=== PATIENT | female | born 1940 | race Caucasian/White ===

== ENCOUNTER 2017-01-23 05:30 | Inpatient (IN) ==
--- NOTE | 2017-01-21 16:45 | XRay Report ---
CLINICAL INFORMATION: Preop COMPARISON: 07/09/2016 FINDINGS:The heart size, mediastinum and pulmonary vessels are unremarkable. The lungs are clear. There are no effusions. The bones and soft tissues are within normal limits. IMPRESSION: Normal chest. Interpreted and Authenticated by: Vish Baker 01/21/17
[2017-01-21 16:50] LABS: Basophils # (Auto) 0.1 K/mcL (0.0-0.3); Basophils % (Auto) 0.6 % (0.0-2.0); Eosinophils # (Auto) 0.2 K/mcL (0.0-0.7); Eosinophils % (Auto) 1.9 % (0.0-7.0); Granulocytes % (Auto) 66.5 % (38.0-78.0); Lymphocytes # (Auto) 2.1 K/mcL (1.5-4.8); Lymphocytes % (Auto) 24.4 % (15.5-49.0); Mean Cell Volume 94.8 fL (80.0-100.0); Mean Corpuscular HGB Conc 33.3 g/dL (31.0-36.0); Mean Corpuscular Hemoglobin 31.6 pg (26.0-34.0); Monocytes # (Auto) 0.6 K/mcL (0.1-0.9); Monocytes % (Auto) 6.6 % (1.0-12.0); Platelet Count 386 K/mcL (140-440); RBC 4.68 M/mcL (4.00-5.20); Red Cell Distribution Width 14.1 % (11.5-14.5)
[2017-01-21 16:54] LABS: ALT/SGPT 36 U/l (0-40); Albumin 4.3 gm/dL (3.2-5.2); Albumin/Globulin Ratio 1.5 (1.0-2.3); Alkaline Phosphatase 140 U/L (39-117); Blood Urea Nitrogen 13 mg/dl (8-23)
[2017-01-23] MEDS ORDERED: metroNIDAZOLE 500 MG/100 ML BAG IV SCH (07:00)
[2017-01-23] MEDS ORDERED: LEVOFLOXACIN 750 MG/150 ML BAG IV SCH (07:00)
[2017-01-23] MEDS ORDERED: BACITRACIN 50,000 UNIT VIAL IR ONE (08:37)
[2017-01-23] MEDS ORDERED: BUPIVACAINE W/EPI 0.5% 50 ML VIAL IJ ONE (08:37)
[2017-01-23] MEDS ORDERED: fentaNYL 250 MCG/5 ML VIAL IV ONE (08:50)
[2017-01-23] MEDS ORDERED: PROPOFOL 200 MG/20 ML VIAL IV ONE (08:50)
[2017-01-23] MEDS ORDERED: ONDANSETRON 4 MG/2 ML VIAL IV ONE (08:50)
[2017-01-23] MEDS ORDERED: LIDOCAINE HCL/PF 100 MG/5 ML SYRINGE IV ONE (08:50)
[2017-01-23] MEDS ORDERED: DEXAMETHASONE 10 MG/ML VIAL IV ONE (08:50)
[2017-01-23] MEDS ORDERED: ROCURONIUM 10 MG/ML ML IV ONE (08:50)
[2017-01-23] MEDS ORDERED: MIDAZOLAM 5 MG/5 ML VIAL IV ONE (08:50)
[2017-01-23] MEDS ORDERED: NEOSTIGMINE 1 MG/ML VIAL IV ONE (08:50)
[2017-01-23] MEDS ORDERED: GLYCOPYRROLATE 0.2 MG/ML VIAL IV ONE (08:50)
[2017-01-23] MEDS ORDERED: VANCOMYCIN 1,000 MG in 0.9 % SODIUM CHLORIDE 250 ML IV ONE (09:30)
[2017-01-23] MEDS ORDERED: fentaNYL 100 MCG/2 ML VIAL IV PRN (10:19)
[2017-01-23] MEDS ORDERED: IPRATROPIUM/ALBUTEROL 3 ML AMPUL.NEB NEB PRN (10:19)
[2017-01-23] MEDS ORDERED: BENZOCAINE/MENTHOL 1 LOZENGE PO PRN (10:19)
[2017-01-23] MEDS ORDERED: NALOXONE HCL 0.4 MG/ML VIAL IV PRN (10:19)
[2017-01-23] MEDS ORDERED: MEPERIDINE 25 MG/ML SYRINGE IV PRN (10:19)
[2017-01-23] MEDS ORDERED: ONDANSETRON 4 MG/2 ML VIAL IV PRN ×2 (10:19→11:35)
[2017-01-23] MEDS ORDERED: diphenhydrAMINE 50 MG/ML VIAL IV PRN (10:19)
[2017-01-23] MEDS ORDERED: ePHEDrine 50 MG/ML AMPUL IV PRN (10:19)
[2017-01-23] MEDS ORDERED: FLUMAZENIL 0.1 MG/ML ML IV PRN (10:19)
[2017-01-23] MEDS ORDERED: METHOCARBAMOL 1,000 MG/10 ML VIAL IV PRN (10:19)
[2017-01-23] MEDS ORDERED: METOPROLOL TARTRATE 5 MG/5 ML VIAL IV PRN (10:19)
[2017-01-23] MEDS ORDERED: ATROPINE SULFATE 0.4 MG/ML VIAL IV PRN (10:19)
[2017-01-23] MEDS ORDERED: PROMETHAZINE 25 MG/ML VIAL IV PRN (10:19)
--- NOTE | 2017-01-23 10:28 | Brief Operative Note ---
Date of procedure: 01/23/17 Pre-op diagnosis: incisional hernia Post-op diagnosis: other (incisional hernia) Procedure: incisional hernia repair with mesh graft Grafts/Implants: Yes (vicryl mesh) Anesthesia: GETA Findings: very large hernia of entire incision Complications: none Surgeon: Jorge Justin Estimated blood loss (cc): 20 Specimens Removed/Pathology: none sent Condition: stable Disposition: PACU
[2017-01-23] MEDS ORDERED: LACTATED RINGERS 1,000 ML IV SCH (10:30)
[2017-01-23] MEDS ORDERED: ACETAMINOPHEN 1,000 MG/100 ML BOTTLE IV PRN ×2 (10:40→16:23)
[2017-01-23] MEDS ORDERED: HYDROmorphone 2 MG/ML SYRINGE IV PRN (11:35)
--- NOTE | 2017-01-23 11:54 | Operative Note ---
DATE OF OPERATION: 01/23/2017 PREOPERATIVE DIAGNOSIS: Incisional hernia. POSTOPERATIVE DIAGNOSIS: Incisional hernia. PROCEDURE: Incisional hernia repair with mesh graft. SURGEON: Jorge Justin MD FINDINGS: Very large hernia encompassing the entire upper aspect one half of the mid-abdominal wall. DESCRIPTION OF PROCEDURE: Under general anesthesia, the patient's abdomen was prepped and draped in a sterile field. A timeout procedure was carried out as per protocol. A midline incision was made. Incision was extended down to the subcutaneous fat where poorly defined hernia sac was encountered. The barrera of the hernia involved the entire previous incision. No retained suture was encountered. The margins were dissected back to the junction of the internal obliques. The attenuated fascial margins were excised. It was elected to place Vicryl mesh rather than SurgiMesh. The bowel was inspected and there was no evidence of injury. Irrigation was carried out. Fish retractor was placed. Vicryl mesh was stapled in using the secure strap auto stapler. The Fish was removed before placing the final sutures. The fascia was closed in the midline over the mesh using interrupted #1 Prolene. MAURA drains were placed in the subcutaneous tissue. The subcutaneous tissue was closed in the midline using 2-0 Monocryl. The skin was closed with frank. Drains were secured with 2-0 Nylon. Tegaderm dressings and an abdominal binder was placed. Patient tolerated procedure well. She was awakened and transferred to the Post-Anesthetic Care Unit in stable condition. LCS:brooks Job ID: [id number] Doc ID: [id number] Jorge Justin M.D.
[2017-01-23] MEDS ORDERED: METOCLOPRAMIDE 10 MG/2 ML VIAL IV SCH (12:00)
[2017-01-23] MEDS: ACETAMINOPHEN 1,000 MG/100 ML BOTTLE IV PRN ×2 (12:15→19:46)
[2017-01-23] MEDS: 0.9 % SODIUM CHLORIDE 1,000 ML IV SCH ×2 (12:15→22:56)
[2017-01-23] MEDS: METOCLOPRAMIDE 10 MG/2 ML VIAL IV SCH ×2 (13:14→17:49)
[2017-01-23] MEDS: 0.9 % SODIUM CHLORIDE 10 ML SYRINGE IV SCH ×2 (15:06→22:31)
[2017-01-23] MEDS ORDERED: MEPERIDINE 50 MG/ML SYRINGE IV PRN (16:23)
[2017-01-23] MEDS: ALPRAZolam 0.5 MG TABLET PO PRN (17:39)
[2017-01-24] MEDS: ALPRAZolam 0.5 MG TABLET PO PRN ×2 (00:06→17:00)
[2017-01-24] MEDS: METOCLOPRAMIDE 10 MG/2 ML VIAL IV SCH ×4 (00:08→17:26)
[2017-01-24] MEDS: ACETAMINOPHEN 1,000 MG/100 ML BOTTLE IV PRN ×4 (01:33→20:25)
[2017-01-24 05:55] LABS: Mean Cell Volume 96.2 fL (80.0-100.0); Mean Corpuscular Hemoglobin 31.7 pg (26.0-34.0); Platelet Count 328 K/mcL (140-440); RBC 4.16 M/mcL (4.00-5.20); Red Cell Distribution Width 14.1 % (11.5-14.5)
[2017-01-24] MEDS: 0.9 % SODIUM CHLORIDE 10 ML SYRINGE IV SCH ×4 (06:02→22:08)
[2017-01-24 06:07] LABS: ALT/SGPT 26 U/l (0-40); Albumin 3.5 gm/dL (3.2-5.2); Albumin/Globulin Ratio 1.6 (1.0-2.3); Alkaline Phosphatase 115 U/L (39-117); Bilirubin,Direct < 0.2 mg/dL (0.0-0.3); Blood Urea Nitrogen 12 mg/dl (8-23); Gamma Glutamyl Transpeptidase 24 U/L (5-36); Magnesium 1.8 mg/dL (1.6-2.5); Uric Acid 5.2 mg/dL (2.5-8.0)
[2017-01-24 07:45] LABS: Lymphocytes % 12 % (15-49); Monocytes % (Manual) 10 % (1-12); Platelet Estimate NORMAL (NORMAL); RBC Morphology NORMAL (NORMAL); Segmented Neutrophils % 78 % (38-78)
[2017-01-24] MEDS: PANTOPRAZOLE 40 MG VIAL IV SCH (07:58)
[2017-01-24] MEDS: 0.9 % SODIUM CHLORIDE 1,000 ML IV SCH ×4 (07:58→22:08)
[2017-01-24] MEDS: CITALOPRAM 20 MG TABLET PO SCH ×2 (08:00→17:26)
[2017-01-24] MEDS: LEVOFLOXACIN 750 MG/150 ML BAG IV SCH (09:30)
--- NOTE | 2017-01-24 17:15 | General Surgery Progress Note ---
Subjective Patient reports: feels better, pain is less, no flatus, no bowel movement, afebrile Narrative: Note initiated : 01/24/17 at 5:13 pm Service Date, if different from initiated Date: [] Patient: Tameka Mccain 76 y/o F admitted on 01/23/17 for Open Hernia Repair Incisional. Chief Complaint: [Patient is doing relatively well. Her major discomfort is with her nasogastric tube. She has not had flatus or bowel movement. Her drainage per Esau-Hollingsworth drains is small amount and serosanguineous. She denies having nausea. Her pain is well controlled.] Objective Temp Pulse Resp BP Pulse Ox 98.6 F 78 18 140/71 92 01/24/17 16:00 01/24/17 03:42 01/24/17 16:00 01/24/17 16:00 01/24/17 16:00 - Additional Data Intake & Output - Last 24 hours: Intake & Output 01/22/17 01/23/17 01/24/17 01/25/17 05:59 05:59 05:59 05:59 Intake Total 4100 / 4100 1340 / 1340 Output Total 1348 / 1348 1503 / 1503 Balance 2752 / 2752 -163 / -163 Weight 138 lb 139 lb 149 lb 149 lb - General physical appearance moderate distress, moderate pain - Eyes PERRL - ENT no congestion - Neck no venous distension - Respiratory normal respiratory effort, clear to auscultation - Cardiovascular Cardiovascular exam: Present: normal rate and rhythm, RRR, +S1, +S2. Absent: JVD - Abdomen tender, bowel sounds, distended (Abdomen is mildly distended but she has active bowel sounds. Her incision looks okay.) - Integumentary no rash, no growths, no abnormal pigmentation - Psychiatric oriented to time, oriented to person, oriented to place, speech is normal, memory intact - Labs 01/24/17 04:50 01/24/17 04:50 Diabetes panel 01/24/17 Range/Units 04:50 Sodium 138 (133-145) mmol/L Potassium 3.6 (3.3-5.1) mmol/L Chloride 103 (96-108) mmol/L Carbon Dioxide 22 (22-30) mmol/L BUN 12 (8-23) mg/dl Creatinine 0.6 (0.6-1.1) mg/dl Glucose 95 (70-105) mg/dL Calcium 8.8 (8.6-10.4) mg/dl AST 26 (0-37) U/l ALT 26 (0-40) U/l Alkaline Phosphatase 115 (39-117) U/L Total Protein 5.7 L (5.9-8.4) gm/dL Albumin 3.5 (3.2-5.2) gm/dL Triglycerides 58 (<150) mg/dl Calcium panel 01/24/17 Range/Units 04:50 Calcium 8.8 (8.6-10.4) mg/dl Phosphorus 3.3 (2.7-4.5) mg/dL Albumin 3.5 (3.2-5.2) gm/dL Pituitary panel 01/24/17 Range/Units 04:50 Sodium 138 (133-145) mmol/L Potassium 3.6 (3.3-5.1) mmol/L Chloride 103 (96-108) mmol/L Carbon Dioxide 22 (22-30) mmol/L BUN 12 (8-23) mg/dl Creatinine 0.6 (0.6-1.1) mg/dl Glucose 95 (70-105) mg/dL Calcium 8.8 (8.6-10.4) mg/dl Adrenal panel 01/24/17 Range/Units 04:50 Sodium 138 (133-145) mmol/L Potassium 3.6 (3.3-5.1) mmol/L Chloride 103 (96-108) mmol/L Carbon Dioxide 22 (22-30) mmol/L BUN 12 (8-23) mg/dl Creatinine 0.6 (0.6-1.1) mg/dl Glucose 95 (70-105) mg/dL Calcium 8.8 (8.6-10.4) mg/dl Total Bilirubin 0.4 (0.0-1.0) mg/dL AST 26 (0-37) U/l ALT 26 (0-40) U/l Alkaline Phosphatase 115 (39-117) U/L Total Protein 5.7 L (5.9-8.4) gm/dL Albumin 3.5 (3.2-5.2) gm/dL Assessment and Plan (1) Incisional hernia of anterior abdominal wall without obstruction or gangrene Status: Acute Assessment and plan: We will continue present therapy Current Visit: No (2) Anxiety Status: Chronic Assessment and plan: Xanax will be given orally and the nasogastric tube will be clamped for 2 hours after each dose Current Visit: No - Time Spent With Patient Total time spent is greater than 50% in coordination of care (as documented) at patient's floor/unit and/or counseling patient:
[2017-01-25] MEDS: METOCLOPRAMIDE 10 MG/2 ML VIAL IV SCH ×4 (00:22→19:04)
[2017-01-25] MEDS: ACETAMINOPHEN 1,000 MG/100 ML BOTTLE IV PRN ×3 (04:05→20:16)
[2017-01-25] MEDS: 0.9 % SODIUM CHLORIDE 10 ML SYRINGE IV SCH ×3 (05:49→22:05)
[2017-01-25 06:30] LABS: Mean Cell Volume 94.2 fL (80.0-100.0); Mean Corpuscular HGB Conc 33.6 g/dL (31.0-36.0); Mean Corpuscular Hemoglobin 31.7 pg (26.0-34.0); Platelet Count 374 K/mcL (140-440); Red Cell Distribution Width 14.1 % (11.5-14.5)
[2017-01-25] MEDS: 0.9 % SODIUM CHLORIDE 1,000 ML IV SCH ×3 (06:40→13:13)
[2017-01-25 07:10] LABS: ALT/SGPT 22 U/l (0-40); Albumin 3.9 gm/dL (3.2-5.2); Albumin/Globulin Ratio 1.7 (1.0-2.3); Alkaline Phosphatase 122 U/L (39-117); Bilirubin,Direct < 0.2 mg/dL (0.0-0.3); Blood Urea Nitrogen 7 mg/dl (8-23); Gamma Glutamyl Transpeptidase 24 U/L (5-36); Magnesium 1.9 mg/dL (1.6-2.5); Uric Acid 5.7 mg/dL (2.5-8.0)
[2017-01-25 07:34] LABS: Eosinophils % (Manual) 2 % (0-7); Lymphocytes % 5 % (15-49); Monocytes % (Manual) 3 % (1-12); Platelet Estimate NORMAL (NORMAL); RBC Morphology NORMAL (NORMAL); Segmented Neutrophils % 90 % (38-78)
[2017-01-25] MEDS: PANTOPRAZOLE 40 MG VIAL IV SCH (08:12)
[2017-01-25] MEDS: CITALOPRAM 20 MG TABLET PO SCH (08:12)
[2017-01-25] MEDS: ALPRAZolam 0.5 MG TABLET PO PRN ×2 (08:12→19:03)
[2017-01-25] MEDS: LEVOFLOXACIN 750 MG/150 ML BAG IV SCH (10:13)
[2017-01-25] MEDS ORDERED: POTASSIUM PHOSPHATE 40 MEQ in DEXTROSE 5% IN WATER 500 ML IV ONE (10:50)
--- NOTE | 2017-01-25 11:57 | General Surgery Progress Note ---
Subjective Patient reports: feels better, pain is less, no flatus, no bowel movement, afebrile Narrative: Note initiated : 01/25/17 at 11:55 am Service Date, if different from initiated Date: [] Patient: Tameka Mccain 76 y/o F admitted on 01/23/17 for Open Hernia Repair Incisional. Chief Complaint: [Mrs. Mccain is stable and improved. She denies any chest pain or shortness of breath. She has not had nausea or vomiting. Her nasogastric output has decreased but she has not had flatus. Her abdominal pain is controlled with IV Tylenol without difficulty. Objective Temp Pulse Resp BP Pulse Ox 98.6 F 89 20 176/95 97 01/25/17 07:40 01/25/17 04:00 01/25/17 07:40 01/25/17 07:40 01/25/17 07:40 - Additional Data Intake & Output - Last 24 hours: Intake & Output 01/23/17 01/24/17 01/25/17 01/26/17 05:59 05:59 05:59 05:59 Intake Total 4100 / 4100 2720 / 2720 1000 / 1000 Output Total 1348 / 1348 3788 / 3788 400 / 400 Balance 2752 / 2752 -1068 / -1068 600 / 600 Weight 139 lb 149 lb 146 lb 8 oz - General physical appearance well developed, well nourished, no distress, severe distress - Eyes PERRL, normal ocular movement - ENT normal pinna, normal nares, normal mucosa, no hearing loss, no congestion - Neck no masses, no bruits, trachea midline, no lymphadectomy, no venous distension - Respiratory normal expansion, normal respiratory effort, clear to percussion, clear to auscultation - Cardiovascular Cardiovascular exam: Present: normal rate and rhythm, RRR, +S1, +S2. Absent: JVD - Abdomen tender, bowel sounds, distended (Abdomen is distended but soft. She has good active bowel sounds. MAURA drainage is minimal and is more serous) - Integumentary no rash, no growths, no abnormal pigmentation - Neurologic normal coordination, normal sensation - Musculoskeletal normal gait, normal posture - Psychiatric oriented to time, oriented to person, oriented to place, speech is normal, memory intact - Labs 01/25/17 05:05 01/25/17 05:05 Diabetes panel 01/25/17 Range/Units 05:05 Sodium 138 (133-145) mmol/L Potassium 3.3 (3.3-5.1) mmol/L Chloride 100 (96-108) mmol/L Carbon Dioxide 19 L (22-30) mmol/L BUN 7 L (8-23) mg/dl Creatinine 0.6 (0.6-1.1) mg/dl Glucose 83 (70-105) mg/dL Calcium 8.9 (8.6-10.4) mg/dl AST 23 (0-37) U/l ALT 22 (0-40) U/l Alkaline Phosphatase 122 H (39-117) U/L Total Protein 6.2 (5.9-8.4) gm/dL Albumin 3.9 (3.2-5.2) gm/dL Triglycerides 89 (<150) mg/dl Calcium panel 01/25/17 Range/Units 05:05 Calcium 8.9 (8.6-10.4) mg/dl Phosphorus 2.4 L (2.7-4.5) mg/dL Albumin 3.9 (3.2-5.2) gm/dL Pituitary panel 01/25/17 Range/Units 05:05 Sodium 138 (133-145) mmol/L Potassium 3.3 (3.3-5.1) mmol/L Chloride 100 (96-108) mmol/L Carbon Dioxide 19 L (22-30) mmol/L BUN 7 L (8-23) mg/dl Creatinine 0.6 (0.6-1.1) mg/dl Glucose 83 (70-105) mg/dL Calcium 8.9 (8.6-10.4) mg/dl Adrenal panel 01/25/17 Range/Units 05:05 Sodium 138 (133-145) mmol/L Potassium 3.3 (3.3-5.1) mmol/L Chloride 100 (96-108) mmol/L Carbon Dioxide 19 L (22-30) mmol/L BUN 7 L (8-23) mg/dl Creatinine 0.6 (0.6-1.1) mg/dl Glucose 83 (70-105) mg/dL Calcium 8.9 (8.6-10.4) mg/dl Total Bilirubin 0.5 (0.0-1.0) mg/dL AST 23 (0-37) U/l ALT 22 (0-40) U/l Alkaline Phosphatase 122 H (39-117) U/L Total Protein 6.2 (5.9-8.4) gm/dL Albumin 3.9 (3.2-5.2) gm/dL Assessment and Plan (1) Incisional hernia of anterior abdominal wall without obstruction or gangrene Status: Acute Assessment and plan: We will continue present therapy Discontinue nasogastric tube Current Visit: No (2) Anxiety Status: Chronic Assessment and plan: Xanax will be given orally and the nasogastric tube will be clamped for 2 hours after each dose Current Visit: No - Time Spent With Patient Total time spent is greater than 50% in coordination of care (as documented) at patient's floor/unit and/or counseling patient:
[2017-01-26] MEDS: METOCLOPRAMIDE 10 MG/2 ML VIAL IV SCH ×4 (00:18→19:40)
[2017-01-26] MEDS: ALPRAZolam 0.5 MG TABLET PO PRN ×2 (00:37→22:22)
[2017-01-26] MEDS: 0.9 % SODIUM CHLORIDE 1,000 ML IV SCH ×4 (01:50→18:23)
[2017-01-26] MEDS: 0.9 % SODIUM CHLORIDE 10 ML SYRINGE IV SCH ×3 (05:47→23:09)
[2017-01-26 06:54] LABS: Mean Cell Volume 94.3 fL (80.0-100.0); Mean Corpuscular HGB Conc 33.7 g/dL (31.0-36.0); Mean Corpuscular Hemoglobin 31.8 pg (26.0-34.0); Platelet Count 346 K/mcL (140-440); RBC 4.29 M/mcL (4.00-5.20); Red Cell Distribution Width 13.9 % (11.5-14.5)
[2017-01-26 07:01] LABS: ALT/SGPT 20 U/l (0-40); Albumin 3.3 gm/dL (3.2-5.2); Albumin/Globulin Ratio 1.3 (1.0-2.3); Alkaline Phosphatase 115 U/L (39-117); Bilirubin,Direct < 0.2 mg/dL (0.0-0.3); Blood Urea Nitrogen 6 mg/dl (8-23); Gamma Glutamyl Transpeptidase 23 U/L (5-36); Magnesium 1.8 mg/dL (1.6-2.5); Uric Acid 6.7 mg/dL (2.5-8.0)
[2017-01-26 07:38] LABS: Basophils % (Manual) 1 % (0-2); Eosinophils % (Manual) 5 % (0-7); Lymphocytes % 19 % (15-49); Monocytes % (Manual) 5 % (1-12); Platelet Estimate NORMAL (NORMAL); RBC Morphology NORMAL (NORMAL); Segmented Neutrophils % 70 % (38-78)
[2017-01-26] MEDS: PANTOPRAZOLE 40 MG VIAL IV SCH (08:00)
[2017-01-26] MEDS: CITALOPRAM 20 MG TABLET PO SCH (09:41)
[2017-01-26] MEDS: ACETAMINOPHEN 1,000 MG/100 ML BOTTLE IV PRN (09:50)
[2017-01-26] MEDS: LEVOFLOXACIN 750 MG/150 ML BAG IV SCH ×2 (11:04→20:21)
--- NOTE | 2017-01-26 11:34 | General Surgery Progress Note ---
Subjective Patient reports: feels better, pain is less, no flatus, no bowel movement, afebrile Narrative: Note initiated : 01/26/17 at 11:32 am Service Date, if different from initiated Date: [] Patient: Tameka Mccain 76 y/o F admitted on 01/23/17 for Open Hernia Repair Incisional. Chief Complaint: [Mrs. Mccain is doing very well. She has tolerated having her nasogastric tube out. She denies nausea. She does not have crampy abdominal pain. She has not had flatus or bowel movement yet but she does not have any abdominal distention. MAURA drainage is gradually decreasing. Urine output is excellent.] Objective Temp Pulse Resp BP Pulse Ox 97.9 F 90 20 162/83 95 01/26/17 11:25 01/26/17 04:00 01/26/17 11:25 01/26/17 11:25 01/26/17 11:25 - Additional Data Intake & Output - Last 24 hours: Intake & Output 01/24/17 01/25/17 01/26/17 01/27/17 05:59 05:59 05:59 05:59 Intake Total 4100 / 4100 2820 / 2820 2440 / 2440 200 / 200 Output Total 1348 / 1348 3788 / 3788 4080 / 4080 250 / 250 Balance 2752 / 2752 -968 / -968 -1640 / -1640 -50 / -50 Weight 149 lb 146 lb 8 oz 145 lb - General physical appearance moderate distress, moderate pain - Eyes PERRL - ENT normal pinna, normal nares, normal mucosa - Neck no masses, no lymphadectomy - Respiratory normal expansion, clear to auscultation - Cardiovascular Cardiovascular exam: Present: normal rate and rhythm, RRR, +S1, +S2 - Abdomen soft, non tender, bowel sounds (Good active bowel sounds without distention incision looks good), surgical scars (none), masses (none) Hernia: none - Integumentary no rash - Neurologic normal coordination, normal sensation - Musculoskeletal normal gait, normal posture - Psychiatric oriented to time, oriented to person, oriented to place, speech is normal, memory intact - Labs 01/26/17 05:30 01/26/17 05:30 Diabetes panel 01/26/17 Range/Units 05:30 Sodium 139 (133-145) mmol/L Potassium 3.2 L (3.3-5.1) mmol/L Chloride 101 (96-108) mmol/L Carbon Dioxide 19 L (22-30) mmol/L BUN 6 L (8-23) mg/dl Creatinine 0.6 (0.6-1.1) mg/dl Glucose 80 (70-105) mg/dL Calcium 9.0 (8.6-10.4) mg/dl AST 22 (0-37) U/l ALT 20 (0-40) U/l Alkaline Phosphatase 115 (39-117) U/L Total Protein 5.9 (5.9-8.4) gm/dL Albumin 3.3 (3.2-5.2) gm/dL Triglycerides 83 (<150) mg/dl Calcium panel 01/26/17 Range/Units 05:30 Calcium 9.0 (8.6-10.4) mg/dl Phosphorus 2.7 (2.7-4.5) mg/dL Albumin 3.3 (3.2-5.2) gm/dL Pituitary panel 01/26/17 Range/Units 05:30 Sodium 139 (133-145) mmol/L Potassium 3.2 L (3.3-5.1) mmol/L Chloride 101 (96-108) mmol/L Carbon Dioxide 19 L (22-30) mmol/L BUN 6 L (8-23) mg/dl Creatinine 0.6 (0.6-1.1) mg/dl Glucose 80 (70-105) mg/dL Calcium 9.0 (8.6-10.4) mg/dl Adrenal panel 01/26/17 Range/Units 05:30 Sodium 139 (133-145) mmol/L Potassium 3.2 L (3.3-5.1) mmol/L Chloride 101 (96-108) mmol/L Carbon Dioxide 19 L (22-30) mmol/L BUN 6 L (8-23) mg/dl Creatinine 0.6 (0.6-1.1) mg/dl Glucose 80 (70-105) mg/dL Calcium 9.0 (8.6-10.4) mg/dl Total Bilirubin 0.5 (0.0-1.0) mg/dL AST 22 (0-37) U/l ALT 20 (0-40) U/l Alkaline Phosphatase 115 (39-117) U/L Total Protein 5.9 (5.9-8.4) gm/dL Albumin 3.3 (3.2-5.2) gm/dL Assessment and Plan (1) Incisional hernia of anterior abdominal wall without obstruction or gangrene Status: Acute Assessment and plan: We will continue present therapy Start clear liquid diet Decrease IV to 75 cc/h Current Visit: No (2) Anxiety Status: Chronic Assessment and plan: Well-controlled on present therapy Current Visit: No - Time Spent With Patient Total time spent is greater than 50% in coordination of care (as documented) at patient's floor/unit and/or counseling patient:
[2017-01-26] MEDS: hydrALAZINE 20 MG/ML VIAL IV SCH (20:45)
[2017-01-26] MEDS: amLODIPine 10 MG TABLET PO SCH (20:45)
[2017-01-27] MEDS: hydrALAZINE 20 MG/ML VIAL IV SCH ×2 (00:53→06:00)
[2017-01-27] MEDS: 0.9 % SODIUM CHLORIDE 1,000 ML IV SCH ×2 (00:54→07:21)
[2017-01-27] MEDS: METOCLOPRAMIDE 10 MG/2 ML VIAL IV SCH ×2 (00:54→06:00)
[2017-01-27] MEDS: 0.9 % SODIUM CHLORIDE 10 ML SYRINGE IV SCH (06:01)
[2017-01-27 06:42] LABS: Mean Cell Volume 92.7 fL (80.0-100.0); Mean Corpuscular HGB Conc 33.9 g/dL (31.0-36.0); Mean Corpuscular Hemoglobin 31.4 pg (26.0-34.0); Platelet Count 375 K/mcL (140-440); RBC 4.53 M/mcL (4.00-5.20)
[2017-01-27 06:58] LABS: ALT/SGPT 25 U/l (0-40); Albumin 3.5 gm/dL (3.2-5.2); Albumin/Globulin Ratio 1.3 (1.0-2.3); Alkaline Phosphatase 123 U/L (39-117); Bilirubin,Direct < 0.2 mg/dL (0.0-0.3); Blood Urea Nitrogen 6 mg/dl (8-23); Gamma Glutamyl Transpeptidase 26 U/L (5-36); Magnesium 1.7 mg/dL (1.6-2.5); Uric Acid 6.8 mg/dL (2.5-8.0)
[2017-01-27] MEDS: PANTOPRAZOLE 40 MG VIAL IV SCH (07:20)
[2017-01-27 07:44] LABS: Eosinophils % (Manual) 5 % (0-7); Lymphocytes % 16 % (15-49); Monocytes % (Manual) 7 % (1-12); Platelet Estimate NORMAL (NORMAL); RBC Morphology NORMAL (NORMAL); Segmented Neutrophils % 72 % (38-78)
[2017-01-27] MEDS: LEVOFLOXACIN 750 MG/150 ML BAG IV SCH (08:42)
[2017-01-27] MEDS: CITALOPRAM 20 MG TABLET PO SCH (08:43)
[2017-01-27] MEDS: amLODIPine 10 MG TABLET PO SCH (08:43)
[2017-01-27] MEDS ORDERED: HYDROmorphone 2 MG TABLET PO PRN (11:23)
--- NOTE | 2017-01-27 11:27 | General Surgery Progress Note ---
Subjective Patient reports: feels better, pain is less, tolerating liquids well, flatus, no bowel movement, afebrile Narrative: Note initiated : 01/27/17 at 11:25 am Service Date, if different from initiated Date: [] Patient: Tameka Mccain 76 y/o F admitted on 01/23/17 for Open Hernia Repair Incisional. Chief Complaint: [Patient is doing well. She has had a small amount of flatus but no bowel movement. She is also having difficulty with IV access. She will receive milk of magnesia 3 doses and will be switched to oral medications. Her diet will be advanced after she has a bowel movement.] Objective Temp Pulse Resp BP Pulse Ox 98.2 F 89 18 144/78 95 01/27/17 11:16 01/27/17 04:00 01/27/17 11:16 01/27/17 11:16 01/27/17 11:16 - Additional Data Intake & Output - Last 24 hours: Intake & Output 01/25/17 01/26/17 01/27/17 01/28/17 05:59 05:59 05:59 05:59 Intake Total 2820 / 2820 2440 / 2440 1720 / 1720 1910 / 1910 Output Total 3788 / 3788 4080 / 4080 2490 / 2490 400 / 400 Balance -968 / -968 -1640 / -1640 -770 / -770 1510 / 1510 Weight 146 lb 8 oz 145 lb 144 lb 8 oz - Additional Exam Lungs----clear Heart----regular rhythm without tachycardia Abdomen-- mild distention--- but with good active bowel sounds, incision looks good; MAURA drains with minimal drainage Extremities--- no edema - Labs 01/27/17 05:36 01/27/17 05:36 Diabetes panel 01/27/17 Range/Units 05:36 Sodium 139 (133-145) mmol/L Potassium 3.1 L (3.3-5.1) mmol/L Chloride 99 (96-108) mmol/L Carbon Dioxide 19 L (22-30) mmol/L BUN 6 L (8-23) mg/dl Creatinine 0.6 (0.6-1.1) mg/dl Glucose 86 (70-105) mg/dL Calcium 9.2 (8.6-10.4) mg/dl AST 29 (0-37) U/l ALT 25 (0-40) U/l Alkaline Phosphatase 123 H (39-117) U/L Total Protein 6.1 (5.9-8.4) gm/dL Albumin 3.5 (3.2-5.2) gm/dL Triglycerides 87 (<150) mg/dl Calcium panel 01/27/17 Range/Units 05:36 Calcium 9.2 (8.6-10.4) mg/dl Phosphorus 2.6 L (2.7-4.5) mg/dL Albumin 3.5 (3.2-5.2) gm/dL Pituitary panel 01/27/17 Range/Units 05:36 Sodium 139 (133-145) mmol/L Potassium 3.1 L (3.3-5.1) mmol/L Chloride 99 (96-108) mmol/L Carbon Dioxide 19 L (22-30) mmol/L BUN 6 L (8-23) mg/dl Creatinine 0.6 (0.6-1.1) mg/dl Glucose 86 (70-105) mg/dL Calcium 9.2 (8.6-10.4) mg/dl Adrenal panel 01/27/17 Range/Units 05:36 Sodium 139 (133-145) mmol/L Potassium 3.1 L (3.3-5.1) mmol/L Chloride 99 (96-108) mmol/L Carbon Dioxide 19 L (22-30) mmol/L BUN 6 L (8-23) mg/dl Creatinine 0.6 (0.6-1.1) mg/dl Glucose 86 (70-105) mg/dL Calcium 9.2 (8.6-10.4) mg/dl Total Bilirubin 0.7 (0.0-1.0) mg/dL AST 29 (0-37) U/l ALT 25 (0-40) U/l Alkaline Phosphatase 123 H (39-117) U/L Total Protein 6.1 (5.9-8.4) gm/dL Albumin 3.5 (3.2-5.2) gm/dL Assessment and Plan (1) Incisional hernia of anterior abdominal wall without obstruction or gangrene Status: Acute Assessment and plan: We will continue present therapy Discontinue IV Switch to p.o. medications Milk of magnesia 3 doses Advance diet once she has regular bowel movement Current Visit: No (2) Anxiety Status: Chronic Assessment and plan: Well-controlled on present therapy Current Visit: No - Time Spent With Patient Total time spent is greater than 50% in coordination of care (as documented) at patient's floor/unit and/or counseling patient:
[2017-01-27] MEDS: MAGNESIUM HYDROXIDE 30 ML ORAL.SUSP PO SCH ×3 (12:02→23:09)
[2017-01-27] MEDS: METOCLOPRAMIDE 10 MG TABLET PO SCH ×3 (12:02→21:13)
[2017-01-27] MEDS: PANTOPRAZOLE 40 MG PACKET PO SCH (17:57)
[2017-01-27] MEDS ORDERED: ACETAMINOPHEN 500 MG TABLET PO PRN ×2 (18:46→23:10)
[2017-01-27] MEDS ORDERED: MEPERIDINE 50 MG TABLET PO PRN (18:53)
[2017-01-27] MEDS: ALPRAZolam 0.5 MG TABLET PO PRN (21:13)
[2017-01-28] MEDS: ALPRAZolam 0.5 MG TABLET PO PRN (02:19)
[2017-01-28] MEDS ORDERED: ACETAMINOPHEN 500 MG TABLET PO PRN (06:45)
[2017-01-28] MEDS: METOCLOPRAMIDE 10 MG TABLET PO SCH ×2 (08:21→11:31)
[2017-01-28] MEDS: amLODIPine 10 MG TABLET PO SCH (08:21)
[2017-01-28] MEDS: CITALOPRAM 20 MG TABLET PO SCH (08:21)
[2017-01-28] MEDS: PANTOPRAZOLE 40 MG PACKET PO SCH (08:22)
--- NOTE | 2017-01-28 14:57 | Discharge Summary ---
Providers - Providers Patient information: Note initiated : 01/28/17 at 2:54 pm Service Date, if different from initiated Date: [] Patient: Tameka Mccain 76 y/o F admitted on 01/23/17 for Open Hernia Repair Incisional. Chief Complaint: [] Date of admission: 01/23/17 Discharge date: 01/28/17 Attending physician: Jorge Justin Hospitalization Hospital course: 76-year-old female with large incisional hernia. She underwent incisional hernia repair with mesh on 23 January 2017. She had slow return of intestinal activity but has done well. She now has flatus without difficulty and is tolerating a full liquid diet. She is stable for discharge. Discharge diagnosis: Incisional hernia Secondary discharge diagnosis: None Reason for admission: Incisional hernia Procedures: Incisional hernia repair with mesh Pertinent studies/significant findings: None Complications: None Exam Temp Pulse Resp BP Pulse Ox 97.4 F 80 16 100/67 96 01/28/17 11:14 01/28/17 04:00 01/28/17 11:14 01/28/17 11:14 01/28/17 11:14 - General physical appearance well developed, well nourished, no distress - Eyes PERRL, normal ocular movement - ENT normal pinna, normal nares, normal mucosa, no hearing loss, no congestion - Head Head exam IM: Present: atraumatic, normocephalic - Neck no masses, no bruits, trachea midline, no lymphadectomy, no venous distension - Cardiovascular Cardiovascular exam IM: Present: normal rate and rhythm - Respiratory normal expansion, normal respiratory effort, clear to percussion, clear to auscultation - Abdomen Abdomen: Present: soft, non tender, bowel sounds Hernia: Present: none - Integumentary Present: no rash, no growths, no abnormal pigmentation - Neurologic Present: normal coordination, normal sensation - Musculoskeletal Present: normal gait, normal posture - Psychiatric Present: oriented to time, oriented to person, oriented to place, speech is normal, memory intact Discharge Plan - Patient/Caregiver Discharge Instructions Activity: increase activity as tolerated Diet: Regular Diet Additional Instructions: Leave ROBERT drain in until your appointment with Dr Justin. Resume home diet as tolerated. Follow up with Dr. Justin. 02/07 at 8:45 am. Activity as tolerated. No heavy lifting over 5# until advised by physician. Return to ER for chills, fever, nausea and/or vomiting, blood in stool, unable to go to the bathroom, uncontrolled pain, signs of infection. - Follow up Plan Follow up with: Jorge Justin MD [Physician] - 02/07/17 8:45 am Disposition: Home, Self-Care Prognosis: Good Rehab Potential: Good I certify that the patient requires SNF services.: No Overall status at discharge: patient is not back to baseline Pending Studies Resuscitation Status Full Code Diet Clear Liquid Diet Start Sat Kaleb 10 Lunch Alprazolam (Xanax) 0.5 mg PO TIDP PRN PRN Reason: Anxiety Last Admin: 01/28/17 02:19 Dose: 0.5 mg Admin: 01/27/17 21:13 Dose: 0.5 mg Admin: 01/26/17 22:22 Dose: 0.5 mg Admin: 01/26/17 00:37 Dose: 0.5 mg Admin: 01/25/17 19:03 Dose: 0.5 mg Admin: 01/25/17 08:12 Dose: 0.5 mg Admin: 01/24/17 17:00 Dose: 0.5 mg Admin: 01/24/17 00:06 Dose: 0.5 mg Admin: 01/23/17 17:39 Dose: 0.5 mg Amlodipine Besylate (Norvasc) 10 mg PO DAILY [facility] Last Admin: 01/28/17 08:21 Dose: 10 mg Admin: 01/27/17 08:43 Dose: 10 mg Admin: 01/26/17 20:45 Dose: 10 mg Citalopram Hydrobromide (Celexa) 20 mg PO DAILY [facility] Last Admin: 01/28/17 08:21 Dose: 20 mg Admin: 01/27/17 08:43 Dose: 20 mg Admin: 01/26/17 09:41 Dose: 20 mg Admin: 01/25/17 08:12 Dose: 20 mg Admin: 01/24/17 17:26 Dose: 20 mg Admin: 01/24/17 08:00 Dose: Metoclopramide HCl (Reglan) 10 mg PO ACHS [facility] Last Admin: 01/28/17 11:31 Dose: 10 mg Admin: 01/28/17 08:21 Dose: 10 mg Admin: 01/27/17 21:13 Dose: 10 mg Admin: 01/27/17 17:56 Dose: 10 mg Admin: 01/27/17 12:02 Dose: 10 mg Pantoprazole Sodium (Protonix) 40 mg PO BIDAC LORI Last Admin: 01/28/17 08:22 Dose: 40 mg Admin: 01/27/17 17:57 Dose: 40 mg Shift Summary 01/28/17 04:16 Shift Summary by Adela Gutierrez Doing well though she is having higher levels of anxiety r/t not having had a BM yet. She is passing flatus and her BT are active. She received 3 doses of MOM with no result as of yet. Pt state MOM hasn't worked for her in the past, she has had better luck with prune juice (with melted butter) and/or Colace. Ambulating ad frank in room and in hallway. Received Xanax at HS last night and again at 0230 for anxiety. VSS, BP remains in normal range. IF she has a BM she can be advanced to a [place] diet. Abdominal incision covered with gauze and Tegaderm and abdominal binder in place. 3 Robert's present draining small amts of serous and serosanguineous drainage. Initialized on 01/28/17 04:16 - END OF NOTE
== END 2017-01-28 15:37 | disposition home or self-care (01) | DRG 355 ==
LOC: SUR 05:30 → MEDSUR 05:31 → EDSTATUS 08:00 → MEDSUR 11:35
PROVIDERS: ADMIT Family Medicine Adult Medicine; ATTEND Family Medicine Adult Medicine

== ENCOUNTER 2018-08-03 11:57 | Inpatient (IN) ==
[~2018-08-03 11:57] MED LIST: ASPIRIN 325 MG ENTERIC COATED TABLET PO SCH
[2018-08-03] MEDS ORDERED: HYDROmorphone 2 MG/ML VIAL IV PRN (12:11)
[2018-08-03] MEDS ORDERED: HYDROmorphone 2 MG/ML VIAL ONE (12:18)
[2018-08-03] MEDS ORDERED: ONDANSETRON 4 MG/2 ML VIAL ONE (12:19)
[2018-08-03] MEDS ORDERED: ONDANSETRON 4 MG/2 ML VIAL IV ONE ×2 (12:21→16:25)
[2018-08-03] MEDS ORDERED: fentaNYL 100 MCG/2 ML VIAL IV ONE ×4 (12:28→13:05)
[2018-08-03] MEDS: fentaNYL 100 MCG/2 ML VIAL IV PRN ×6 (12:34→15:00)
--- NOTE | 2018-08-03 12:44 | Emergency Department Note ---
Fall HPI - General Chief Complaint: Fall Stated Complaint: fall, left hip pain Time Seen by Provider: 08/03/18 12:04 Source: EMS Mode of arrival: ambulatory - History of Present Illness HPI Narrative: 77-year-old female presents with left hip pain and left knee pain after a fall this morning. She went to step up on a cement patio outside and tripped and fell. Landed on her left hip and is having significant left hip and knee pain. States she cannot bear weight on it at all. She was outside and was freezing so she crawled into the inside use a phone to call for help. She thinks this may have taken about 20 minutes possibly. She did not hit her head. No loss of consciousness. No head, neck, or back pain. She did really arrive via EMS and had 75 mcgs of fentanyl in the field. No numbness or tingling. Loss of Consciousness: none Symptoms Prior to Fall: none Context: tripped/slipped - Related Data Home Medications Medication Instructions Recorded Confirmed alprazolam 0.5 mg tablet 0.5 mg PO TIDP PRN tab 11/28/16 08/03/18 citalopram 20 mg tablet 20 mg PO DAILY tab 11/28/16 08/03/18 Docusate Sodium [Colace] 100 mg PO DAILY 01/16/18 08/03/18 Potassium Chloride [Klor-Con 10] 10 meq PO DAILY 01/16/18 08/03/18 Acetaminophen [Tylenol Extra 500 mg PO Q4H PRN 01/21/18 08/03/18 Strength] Alive womans Vitamin PO 01/24/18 05/05/18 Lactobacillus acidophilus PO 05/05/18 05/05/18 alpha lipoic acid 300 mg capsule 300 mg PO QDAY 05/05/18 08/03/18 calcium carbonate 500 mg calcium 2,000 mg PO QDAY tab 05/05/18 08/03/18 (1,250 mg) chewable tablet cholecalciferol (vitamin D3) 5,000 5,000 unit PO QDAY 05/05/18 08/03/18 unit capsule magnesium oxide 400 mg capsule 400 mg PO QDAY cap 05/05/18 08/03/18 omega-3 fatty [id number] PO 05/05/18 05/05/18 vitamin B12 1,000 mcg-folic acid [place] SUBLINGUAL 05/05/18 05/05/18 400 mcg sublingual lozenge Allergies Allergy/AdvReac Type Severity Reaction Status Date / Time adhesive tape Allergy Mild Hives Verified 05/05/18 10:08 Penicillins Allergy Mild Hives Verified 05/05/18 10:08 Hydromorphone AdvReac Intermediate Agitated Verified 05/05/18 10:08 hydrocodone [HYDROCODONE] AdvReac Mild VOMITING Verified 05/05/18 10:08 zoster vaccine live AdvReac Mild DEVELOPED Verified 05/05/18 10:08 SHINGLES Review of Systems All systems ED: reviewed and negative except as stated. Fall PMH - Past Medical History [facility] Narrative: Medical History (Last Reviewed 05/05/18 @ 11:22 by Jorge Justin MD) Hypoglycemia (Chronic) Degenerative disc disease (Chronic) Skin cancer (Chronic ~2009) Anxiety (Chronic) Heartburn (Chronic) Hypothyroidism (Chronic) Pancreatic cyst (Chronic) Abdominal hernia (Chronic) Hypertension (Acute) History of bladder surgery (Acute) Past Surgical History (Last Reviewed 05/05/18 @ 11:22 by Jorge Justin MD) History of incisional hernia repair (Acute ~01/23/17) History of shoulder surgery (Acute) History of back surgery (Chronic ~2010) History of cervical discectomy (Chronic) History of cholecystectomy (Chronic ~2008) History of colectomy (Chronic) History of colonoscopy (Chronic 10/03/15) History of hernia repair (Chronic) History of hysterectomy (Chronic ~1981) History of intestinal surgery (Chronic ~2012) History of tonsillectomy (Chronic ~2011) History of total cystectomy (Chronic ~2008) Status post wrist surgery (Chronic) Toe amputation status (Chronic ~2007) Medical history: Reports: cancer (pacreatic), hypertension Psychiatric history: Reports: no psych history CLUB DIRECTOR history: Reports: non-contributory Family history: Reports: no significant family history - Social History smoking status: Former smoker Alcohol use: Reports: None Drug use: Reports: none Physical Exam Limitations: no limitations General appearance: alert, other (In pain) Head: atraumatic, normocephalic, normal inspection Eye: Present: normal appearance. Absent: conjunctival injection ENT: mucous membranes moist Neck: Present: normal inspection, full ROM, trachea midline. Absent: tenderness , lymphadenopathy Chest: Present: symmetric chest wall rise Respiratory: Present: normal lung sounds bilaterally. Absent: respiratory distress, rales/crackles, wheezes, accessory muscle use Cardiovascular: Present: regular rate, normal heart sounds Extremities: Present: normal capillary refill. Absent: normal inspection (Left hip appears slightly shortened and rotated although difficult to tell on her position of comfort. Diffuse pain throughout the left hip. Left knee also with superficial abrasion quarter size and pain over the patella with palpation) , full ROM (Greatly limited active and passive range of motion to the left hip and left knee related pain) Back: Present: normal inspection. Absent: tenderness Neurological: Present: alert Psychiatric: Present: normal affect, normal mood Skin: Present: warm, dry, intact, normal color. Absent: rash, cyanosis, diaphoresis, erythema Course Course Narrative: At [address] Dr[address] Bird, orthopedic on-call who agrees to care for the patient but he would like the hospitalist admit. At [address] speak with Dr[address] Winkler, the hospitalist who agrees to admit the patient Vital Signs Pulse Rate 72 08/03/18 11:58 Respiratory Rate 18 08/03/18 11:58 Blood Pressure 133/63 08/03/18 11:58 Pulse Oximetry (%) 96 08/03/18 11:58 Pulse Rate 73 08/03/18 14:02 Respiratory Rate 18 08/03/18 11:58 Blood Pressure 146/66 08/03/18 14:02 Pulse Oximetry (%) 91 08/03/18 14:02 Fall - Lab Data Result diagrams: 08/03/18 13:26 08/03/18 13:26 Lab Results 08/03/18 08/03/18 Range/Units 13:26 13:26 WBC 19.2 H (4.5-11.0) K/mcL RBC 4.94 (4.00-5.20) M/mcL Hgb 14.9 (12.0-15.0) g/dL Hct 45.0 (36.0-48.0) % MCV 91.1 (80.0-100.0) fL MCH 30.1 (26.0-34.0) pg MCHC 33.0 (31.0-36.0) g/dL RDW 14.8 H (11.5-14.5) % Plt Count 417 (140-440) K/mcL MPV 10.1 (7.4-10.4) fL Gran % 89.0 H (38.0-78.0) % Lymph % (Auto) 7.2 L (15.5-49.0) % [place] % (Auto) 3.5 (1.0-12.0) % Eos % (Auto) 0.2 (0.0-7.0) % Baso % (Auto) 0.1 (0.0-2.0) % Gran # 17.1 H (1.8-8.0) K/mcL Lymph # (Auto) 1.4 L (1.5-4.8) K/mcL [place] # (Auto) 0.7 (0.1-0.9) K/mcL Eos # (Auto) 0 (0.0-0.7) K/mcL Baso # (Auto) 0 (0.0-0.3) K/mcL Sodium 140 (133-145) mmol/L Potassium 4.2 (3.3-5.1) mmol/L Chloride 101 (96-108) mmol/L Carbon Dioxide 22 (22-30) mmol/L Anion Gap 17.0 H (8-16) BUN 15 (8-23) mg/dl Creatinine 0.8 (0.6-1.1) mg/dl GFR Calculation 72 Glucose 149 H (70-105) mg/dL Calcium 9.6 (8.6-10.4) mg/dl Total Bilirubin 0.4 (0.0-1.0) mg/dL AST 37 (0-37) U/l ALT 36 (0-40) U/l Alkaline Phosphatase 154 H (39-117) U/L Total Protein 7.3 (5.9-8.4) gm/dL Albumin 4.4 (3.2-5.2) gm/dL Globulin 2.9 (2.2-3.7) gm/dL Albumin/Globulin Ratio 1.5 (1.0-2.3) Disposition Pt seen by INSIDE SALES EXECUTIVE/PA only: Yes Clinical Impression: Fall, Hip fracture, left Disposition: Xfer As Inpt ([facility]) Condition: Fair Referrals: Carlos Pandey ARNP [Primary Care Provider] - Vish Bird MD [Physician] - Time of Disposition: 14:20
[2018-08-03 13:55] LABS: Basophils # (Auto) 0 K/mcL (0.0-0.3); Basophils % (Auto) 0.1 % (0.0-2.0); Eosinophils # (Auto) 0 K/mcL (0.0-0.7); Eosinophils % (Auto) 0.2 % (0.0-7.0); Lymphocytes # (Auto) 1.4 K/mcL (1.5-4.8); Lymphocytes % (Auto) 7.2 % (15.5-49.0); Mean Cell Volume 91.1 fL (80.0-100.0); Mean Corpuscular Hemoglobin 30.1 pg (26.0-34.0); Monocytes # (Auto) 0.7 K/mcL (0.1-0.9); Monocytes % (Auto) 3.5 % (1.0-12.0); Platelet Count 417 K/mcL (140-440); RBC 4.94 M/mcL (4.00-5.20); Red Cell Distribution Width 14.8 % (11.5-14.5)
--- NOTE | 2018-08-03 14:03 | XRay Report ---
CLINICAL INFORMATION: fall, knee pain COMPARISON: None. FINDINGS: No fracture or other osseous abnormalities identified. Mild patellofemoral and medial tibiofemoral degenerative changes noted. Soft tissues normal IMPRESSION: No evidence of fracture. Mild degenerative change Interpreted and Authenticated by: Vish Baker 08/03/18
--- NOTE | 2018-08-03 14:05 | XRay Report ---
CLINICAL INFORMATION: Preop - hip fracture COMPARISON: 06/19/2017. FINDINGS: The heart size, mediastinum and pulmonary vessels are unremarkable. The lungs are clear. There are no effusions. Small eventration right diaphragm seen - as before The bones and soft tissues are within normal limits. IMPRESSION: No acute disease. Small, stable eventration right anterior diaphragm. Interpreted and Authenticated by: Vish Baker 08/03/18
[2018-08-03 14:15] LABS: ALT/SGPT 36 U/l (0-40); Albumin 4.4 gm/dL (3.2-5.2); Albumin/Globulin Ratio 1.5 (1.0-2.3); Alkaline Phosphatase 154 U/L (39-117); Blood Urea Nitrogen 15 mg/dl (8-23)
--- NOTE | 2018-08-03 14:28 | Internal Med History&Physical ---
Medical - H&P: HPI Patient information: Note initiated : 08/03/18 at 2:25 pm Service Date, if different from initiated Date: [] Patient: Tameka Mccain a 77 y/o F admitted on for fall, left hip pain. Chief Complaint: [] History of present illness: Ms. Mccain is a 77 year old F Who recently had cataract surgery a week prior with some residual vision deficit. She was out side and she was stepping up onto her porch. While stepping up she tripped over a step and fell landing on her left side. She had immediate pain to the left side. She was unable to get up and walk. She crawled across the portion of 4 steps into the house. She did not hit her head. There is no chest pain shortness of breath. No syncope. No numbness or tingling. No recent illness. She is seen in the ER. Found to have a left hip fracture. Dr. Bird was contacted. Review of Systems: Positive for left hip pain. Denies headache/fever/chills/nausea/vomiting/ chest or abdominal pain/cough/dyspnea/diarrhea. Remaining 10 point review of systems reviewed negative Medical - H&P: PMH Medical history: Home Medications alprazolam 0.5 mg tablet 0.5 mg PO TIDP PRN tab 11/28/16 [History Confirmed Last Taken 01/20/18] citalopram 20 mg tablet 20 mg PO DAILY tab 11/28/16 [History Confirmed Last Taken 01/20/18] Docusate Sodium [Colace] 100 mg PO DAILY 01/16/18 [History Confirmed 08/03/18 Last Taken 01/18/18] Potassium Chloride [Klor-Con 10] 10 meq PO DAILY 01/16/18 [History Confirmed Last Taken 01/20/18] Acetaminophen [Tylenol Extra Strength] 500 mg PO Q4H PRN 01/21/18 [History Confirmed 08/03/18 Last Taken 01/20/18 1000] Alive womans Vitamin PO 01/24/18 [History Confirmed 05/05/18 Last Taken Unknown] Lactobacillus acidophilus PO 05/05/18 [History Confirmed 05/05/18 Last Taken Unknown] alpha lipoic acid 300 mg capsule 300 mg PO QDAY 05/05/18 [History Confirmed Last Taken Unknown] calcium carbonate 500 mg calcium (1,250 mg) chewable tablet 2,000 mg PO QDAY tab 05/05/18 [History Confirmed 08/03/18 Last Taken Unknown] cholecalciferol (vitamin D3) 5,000 unit capsule 5,000 unit PO QDAY 05/05/18 [ History Confirmed 08/03/18 Last Taken Unknown] magnesium oxide 400 mg capsule 400 mg PO QDAY cap 05/05/18 [History Confirmed 08/03/18 Last Taken Unknown] omega-3 fatty [id number]-[id number]-hdo PO 05/05/18 [History Confirmed 05/05/18 Last Taken Unknown] vitamin B12 1,000 mcg-folic acid 400 mcg sublingual lozenge [place] SUBLINGUAL 05/05 [History Confirmed 05/05/18 Last Taken Unknown] Past Surgical History (Last Reviewed 05/05/18 @ 11:22 by Jorge Justin MD) History of incisional hernia repair (Acute ~01/23/17) History of shoulder surgery (Acute) History of back surgery (Chronic ~2010) History of cervical discectomy (Chronic) History of cholecystectomy (Chronic ~2008) History of colectomy (Chronic) History of colonoscopy (Chronic 10/03/15) History of hernia repair (Chronic) History of hysterectomy (Chronic ~1981) History of intestinal surgery (Chronic ~2012) History of tonsillectomy (Chronic ~2011) History of total cystectomy (Chronic ~2008) Status post wrist surgery (Chronic) Toe amputation status (Chronic ~2007) Family History (Last Reviewed 05/05/18 @ 11:22 by Jorge Justin MD) Mother Heart disease Hypertension Brother Heart disease Diabetes mellitus Kidney stone Father Diabetes mellitus ETOH abuse Social History (Last Updated 05/05/18 @ 11:30 by Jorge Justin MD) Quit smoking 4 years ago Denies alcohol use Typically does not use a cane or walker Lives at home with her Medical - H&P: Meds Home Medications Medication Instructions Recorded Confirmed Type alprazolam 0.5 mg tablet 0.5 mg PO TIDP PRN tab 11/28/16 08/03/18 History citalopram 20 mg tablet 20 mg PO DAILY tab 11/28/16 08/03/18 History Docusate Sodium [Colace] 100 mg PO DAILY 01/16/18 08/03/18 History Potassium Chloride [Klor-Con 10] 10 meq PO DAILY 01/16/18 08/03/18 History Acetaminophen [Tylenol Extra 500 mg PO Q4H PRN 01/21/18 08/03/18 History Strength] Alive womans Vitamin PO 01/24/18 05/05/18 History Lactobacillus acidophilus PO 05/05/18 05/05/18 History alpha lipoic acid 300 mg capsule 300 mg PO QDAY 05/05/18 08/03/18 History calcium carbonate 500 mg calcium 2,000 mg PO QDAY tab 05/05/18 08/03/18 History (1,250 mg) chewable tablet cholecalciferol (vitamin D3) 5,000 5,000 unit PO QDAY 05/05/18 08/03/18 History unit capsule magnesium oxide 400 mg capsule 400 mg PO QDAY cap 05/05/18 08/03/18 History omega-3 fatty [id number]-vax-izi PO 05/05/18 05/05/18 History vitamin B12 1,000 mcg-folic acid pet[place] SUBLINGUAL 05/05/18 05/05/18 History 400 mcg sublingual lozenge Allergies Allergy/AdvReac Type Severity Reaction Status Date / Time adhesive tape Allergy Mild Hives Verified 05/05/18 10:08 Penicillins Allergy Mild Hives Verified 05/05/18 10:08 Hydromorphone AdvReac Intermediate Agitated Verified 05/05/18 10:08 hydrocodone [HYDROCODONE] AdvReac Mild VOMITING Verified 05/05/18 10:08 zoster vaccine live AdvReac Mild DEVELOPED Verified 05/05/18 10:08 SHINGLES Medical - H&P: Exam - Constitutional Vitals: Pulse Resp BP Pulse Ox 73 18 146/66 91 08/03/18 14:02 08/03/18 11:58 08/03/18 14:02 08/03/18 14:02 Exam: General: Alert, Awake, No acute Distress Eyes/N/T: EOMI, PEERL, DMM Head/Neck: neck supple, normocephalic atraumatic CV: RRR, No murmurs, normal s1/s2 Pulm: Clear b/l, no wheezing/rhonchi/rales Abd: soft, nontender, +BS x4 Ext: no clubbing/cyanosis/edema Neuro: Alert, no focal deficits, left lower extremity shortened and externally rotated sensations intact b/l upper/lower Skin: warm/dry Medical - H&P: Reslt - Labs CBC & Chem 7: 08/03/18 13:26 08/03/18 13:26 Labs: Short CBC 08/03/18 Range/Units 13:26 WBC 19.2 H (4.5-11.0) K/mcL Hgb 14.9 (12.0-15.0) g/dL Hct 45.0 (36.0-48.0) % Plt Count 417 (140-440) K/mcL BMP 08/03/18 13:26 Sodium 140 Potassium 4.2 Chloride 101 Carbon Dioxide 22 BUN 15 Creatinine 0.8 Glucose 149 H Calcium 9.6 Liver Function 08/03/18 Range/Units 13:26 Total Bilirubin 0.4 (0.0-1.0) mg/dL AST 37 (0-37) U/l ALT 36 (0-40) U/l Alkaline Phosphatase 154 H (39-117) U/L Albumin 4.4 (3.2-5.2) gm/dL - Impressions Chest x-ray no acute abnormalities Medical - H&P: A/P - Narrative A/P Narrative: A: *Left hip fracture, GLF: *History of depression/anxiety *Leukocytosis: Likely reactive, afebrile, no recent illness * P: -Dr. Bird for ortho -pain control -Urinalysis pending -cont home meds -check INR - - -ppx: SCD, post-op per ortho
[2018-08-03] MEDS ORDERED: ALPRAZolam 0.5 MG TABLET PO PRN (15:03)
[2018-08-03] MEDS ORDERED: MAGNESIUM HYDROXIDE 30 ML ORAL.SUSP PO PRN ×4 (15:03→19:16)
[2018-08-03] MEDS ORDERED: BISACODYL 10 MG SUPP.RECT PR PRN ×4 (15:03→19:16)
[2018-08-03] MEDS ORDERED: 0.9 % SODIUM CHLORIDE 1,000 ML IV SCH (15:03)
[2018-08-03] MEDS ORDERED: ONDANSETRON ODT 4 MG TABLET SL PRN ×4 (15:03→19:16)
[2018-08-03] MEDS ORDERED: HYDROcodone/APAP 5/325MG TABLET PO PRN ×2 (15:03→19:16)
--- NOTE | 2018-08-03 15:16 | Cat Scan Report ---
CLINICAL INFORMATION: Trauma now with left hip pain COMPARISON: None. TECHNIQUE: 0.625 mm helical slices were obtained from the mid L4 through the subtrochanteric regions. Following reconstruction, 2.5 mm sagittal, coronal and axial reformations were processed. The exam was reviewed in bone and soft tissue windows. The exam was performed using radiation dose optimization techniques including, but not limited to, automated exposure control, adjustment of mA and/or kV according to patient size and use of iterative reconstruction technique. FINDINGS: A mildly comminuted, transverse cervical fracture of the left femoral neck is appreciated. The distal fragment is displaced 10 mm superiorly and 5 mm anteriorly. There is mild impaction. No other fractures identified. Both SI joints are normal in width and alignment without arthritic change. There is mild degenerative change in the SI joints. Soft tissues are significant for interval repair of ventral wall hernia. No evidence of recurrent hernia. There are surgical clips in the mid transverse colon presumably related to partial colectomy. The remaining visualized large and small bowel are normal. There is no free air, free fluid or adenopathy. Urinary bladder is normal. Hysterectomy changes are appreciated. IMPRESSION: 1. Acute transcervical fracture - left femoral neck with mild displacement. Interpreted and Authenticated by: Vish Baker 08/03/18
[2018-08-03 15:46] LABS: Appearance,Urine CLOUDY; Bacteria,Urine 0 /hpf (0); Bilirubin,Urine NEG (NEG); Color,Urine YELLOW; Glucose,Urine (UA) NEGATIVE (NEG); Leukocyte Esterase,Urine NEG /uL (NEG); Protein,Urine NEG (NEG); Specific Gravity,Urine 1.017 (1.000-1.035); Urine Amorphous Crystals FEW /hpf (0); Urine Blood >=1.0 mg/dL (<0.03); Urine RBC > 182 /hpf (0-1); Urine Squamous Epithelial Cell 0 /hpf (0-4); Urine WBC 0 /hpf (0-4); Urobilinogen,Urine NEG (NEG)
[2018-08-03] MEDS ORDERED: PROPOFOL 200 MG/20 ML VIAL IV ONE (16:25)
[2018-08-03] MEDS ORDERED: GLYCOPYRROLATE 0.2 MG/ML VIAL IV ONE (16:25)
[2018-08-03] MEDS ORDERED: MIDAZOLAM 2 MG/2 ML VIAL IV ONE (16:25)
[2018-08-03] MEDS ORDERED: PHENYLEPHRINE 10 MG/ML VIAL IV ONE (16:25)
[2018-08-03] MEDS ORDERED: TRANEXAMIC ACID 1,000 MG/10 ML VIAL IV ONE ×3 (16:25→18:44)
[2018-08-03] MEDS ORDERED: KETAMINE 100 MG/ML ML IV ONE (16:25)
[2018-08-03] MEDS ORDERED: LIDOCAINE HCL/PF 100 MG/5 ML SYRINGE IV ONE (16:25)
[2018-08-03] MEDS ORDERED: GENTAMICIN SULFATE 800 MG/20 ML VIAL IR ONE (17:01)
--- NOTE | 2018-08-03 17:20 | History and Physical Report ---
DATE OF ADMISSION: 08/03/2018 CHIEF COMPLAINT: Left hip pain. HISTORY OF PRESENT ILLNESS: The patient had went outside earlier today at her home and she was cleaning up after her dogs, when she went to step up on her porch and her shoe came off and she then fell down to her knee and then onto her left hip. She tried to stand up, but then could not. She did drag herself to a chair and sat there for a minute. Her is deaf and she could not call for help. She did then crawl into her house and to a telephone and called her daughter who instructed her to call 911. She was then brought to the ED. PAST MEDICAL HISTORY: Includes hypertension, hyperglycemia, hyperthyroidism, pancreatic cyst, skin cancer behind her ear, degenerative disk disease, left shoulder pain. PAST SURGICAL HISTORY: Includes cervical disk surgery, cholecystectomy, colectomy, colonoscopy, hernia repair, hysterectomy, right shoulder surgery, tonsillectomy, cystectomy from her pancreas. She also has had a toe amputation and a wrist surgery. FAMILY HISTORY: Positive for diabetes, alcohol abuse. ALLERGIES: SHE DOES REPORT AN ALLERGY TO PENICILLIN A CHILD, ALSO HYDROMORPHONE, ADHESIVE TAPE, AND ZOSTAVAX VACCINE. HOME MEDICATIONS: Include Tylenol, multivitamin, calcium with vitamin D, docusate sodium, lactobacillus acidophilus, magnesium oxide, [place] 3 fatty acids, and vitamin B12. SOCIAL HISTORY: She denies smoking and drinking. She does live at home with her . PHYSICAL EXAMINATION: GENERAL: The patient is alert and oriented x3. She has appropriate mood and affect. VITAL SIGNS: She is 5 feet 3 inches tall, stated 172 pounds. Most recent vital signs include temperature is 96.2, pulse rate is 70, respiratory rate is 26, blood pressure 147/57, pulse ox is 99. HEART: Regular with a murmur noted. LUNGS: Clear to auscultation bilaterally. EXTREMITIES: Her left lower extremity, she is unable to move her hip or knee due to pain. She does have tenderness to palpation over the greater trochanter. She does have a small abrasion on the knee. She does have palpable pedal and tibial pulses bilaterally. She does have good capillary refill bilaterally as well. She is able to plantarflex and dorsiflex the left lower extremity. Right lower extremity, she is able to actively flex the hip as well as flex and extend the knee and plantarflex and dorsiflex the ankle. She does have 5/5 strength with knee flexion, extension and ankle plantar flexion, dorsiflexion, but this does cause pain on the left side. There is no swelling noted on the right side. Mild swelling and ecchymosis noted on the left hip. IMAGING: Shows displaced femoral neck fracture. PLAN: The patient has elected to proceed with a left yessica-hip arthroplasty to be performed by Dr. Bird. I did have a discussion with the patient and her daughter regarding the procedure and the postoperative protocol. I advised the patient of risks including bleeding, infection, injury to nerves, blood vessels, other structures in the area, anesthetic risks. The patient understands these risks and wishes to proceed. MARIE:hn Job ID: [id number] Doc ID: [id number] Woody Aiken PA-C
--- NOTE | 2018-08-03 17:30 | Brief Operative Note ---
Date of procedure: 08/03/18 Pre-op diagnosis: left hip transcervical femoral neck fracture Post-op diagnosis: same Procedure: left hip hemiarthroplasty Grafts/Implants: Yes Anesthesia: spinal Complications: none Surgeon: Vish Bird Electronic Scale Assembler And Tester: Woody Aiken Estimated blood loss (cc): 100 Specimens Removed/Pathology: none sent Condition: stable Disposition: PACU
[2018-08-03] MEDS ORDERED: oxyCODONE/APAP 5/325MG TABLET PO PRN (17:31)
[2018-08-03] MEDS ORDERED: POLYETHYLENE GLYCOL 3350 17 GM PACKET PO PRN ×2 (17:31→19:16)
[2018-08-03] MEDS ORDERED: METHOCARBAMOL 750 MG TABLET PO PRN ×2 (17:31→19:16)
[2018-08-03] MEDS ORDERED: FLEETS ADULT ENEMA PR PRN ×2 (17:31→19:16)
[2018-08-03] MEDS ORDERED: BENZOCAINE/MENTHOL 1 LOZENGE PO PRN ×3 (17:31→19:16)
[2018-08-03] MEDS ORDERED: ceFAZolin 1 GM VIAL IV SCH (17:45)
[2018-08-03] MEDS ORDERED: IPRATROPIUM/ALBUTEROL 3 ML AMPUL.NEB NEB PRN (17:55)
[2018-08-03] MEDS ORDERED: ONDANSETRON 4 MG/2 ML VIAL IV PRN (17:55)
[2018-08-03] MEDS ORDERED: METHOCARBAMOL 1,000 MG/10 ML VIAL IV PRN (17:55)
[2018-08-03] MEDS ORDERED: ACETAMINOPHEN 1,000 MG/100 ML BOTTLE IV ONE (17:55)
[2018-08-03] MEDS ORDERED: fentaNYL 100 MCG/2 ML VIAL IV PRN ×2 (17:55→19:16)
[2018-08-03] MEDS ORDERED: MEPERIDINE 25 MG/ML SYRINGE IV PRN (17:55)
[2018-08-03] MEDS ORDERED: LACTATED RINGERS 1,000 ML IV SCH (18:00)
[2018-08-03] MEDS ORDERED: PROMETHAZINE 25 MG/ML VIAL IV ONE (18:35)
[2018-08-03] MEDS ORDERED: METOCLOPRAMIDE 10 MG/2 ML VIAL IV ONE (18:35)
[2018-08-03] MEDS ORDERED: METOCLOPRAMIDE 10 MG/2 ML VIAL ONE (18:36)
--- NOTE | 2018-08-03 18:51 | XRay Report ---
CLINICAL INFORMATION: Left hip fracture - postop COMPARISON: None. FINDINGS: Left hip prostheses is anatomically aligned. No osseous abnormality. Mild degenerative change seen in both SI joints. Mild soft tissue swelling in the surgical site seen as expected IMPRESSION: Left hip prosthesis - anatomically aligned Interpreted and Authenticated by: Vish Baker 08/03/18
[2018-08-03] MEDS ORDERED: PROMETHAZINE 25 MG/ML VIAL ONE (18:57)
[2018-08-03] MEDS ORDERED: DOCUSATE SODIUM 100 MG CAPSULE PO SCH ×3 (21:00)
[2018-08-03] MEDS ORDERED: SENNOSIDES 1 TABLET PO SCH (21:00)
[2018-08-03] MEDS: 0.9 % SODIUM CHLORIDE 1,000 ML IV SCH (21:28)
[2018-08-03] MEDS: SENNOSIDES 1 TABLET PO SCH (21:28)
[2018-08-03] MEDS: DOCUSATE SODIUM 100 MG CAPSULE PO SCH (21:29)
[2018-08-03] MEDS: 0.9 % SODIUM CHLORIDE 10 ML SYRINGE IV SCH (21:30)
[2018-08-03] MEDS ORDERED: 0.9 % SODIUM CHLORIDE 10 ML SYRINGE IV SCH (22:00)
[2018-08-04] MEDS: oxyCODONE/APAP 5/325MG TABLET PO PRN ×3 (00:25→10:17)
[2018-08-04] MEDS: ceFAZolin 1 GM VIAL IV SCH ×2 (00:25→08:11)
[2018-08-04] MEDS: 0.9 % SODIUM CHLORIDE 10 ML SYRINGE IV SCH ×3 (05:20→20:41)
[2018-08-04 06:26] LABS: Basophils # (Auto) 0 K/mcL (0.0-0.3); Basophils % (Auto) 0.3 % (0.0-2.0); Eosinophils # (Auto) 0 K/mcL (0.0-0.7); Eosinophils % (Auto) 0 % (0.0-7.0); Granulocytes % (Auto) 86.2 % (38.0-78.0); Lymphocytes # (Auto) 1.1 K/mcL (1.5-4.8); Lymphocytes % (Auto) 7.1 % (15.5-49.0); Mean Corpuscular HGB Conc 33.4 g/dL (31.0-36.0); Mean Corpuscular Hemoglobin 30.8 pg (26.0-34.0); Monocytes % (Auto) 6.4 % (1.0-12.0); Platelet Count 377 K/mcL (140-440); RBC 4.12 M/mcL (4.00-5.20)
[2018-08-04 06:44] LABS: ALT/SGPT 34 U/l (0-40); Albumin 3.7 gm/dL (3.2-5.2); Albumin/Globulin Ratio 1.5 (1.0-2.3); Alkaline Phosphatase 129 U/L (39-117); Bilirubin,Direct < 0.2 mg/dL (0.0-0.3); Blood Urea Nitrogen 20 mg/dl (8-23); Gamma Glutamyl Transpeptidase 21 U/L (5-36)
--- NOTE | 2018-08-04 06:52 | Internal Med Progress Note ---
Medical - PN: Subj Patient information: Note initiated : 08/04/18 at 6:49 am Service Date, if different from initiated Date: [] Patient: Tameka Mccain a 77 y/o F admitted on 08/03/18 for fall, left hip pain. Chief Complaint: [] Interval history: Ms. Mccain is a 77 year old F Who recently had cataract surgery a week prior with some residual vision deficit. She was out side and she was stepping up onto her porch. While stepping up she tripped over a step and fell landing on her left side. She had immediate pain to the left side. She was unable to get up and walk. She crawled across the portion of 4 steps into the house. She did not hit her head. There is no chest pain shortness of breath. No syncope. No numbness or tingling. No recent illness. She is seen in the ER. Found to have a left hip fracture. Dr. Bird was contacted. 08/04 Feeling better this morning. Did get some sleep. Leg pain better controlled. Review of Systems: chronic abdominal pain. denies headache/fever/chills/nausea/vomiting/chest pain/ cough/dyspnea/diarrhea. Otherwise see above.1` - Constitutional Vitals: Vital Signs Temp Pulse Resp BP Pulse Ox 98.9 F 94 H 16 114/67 94 08/04/18 03:25 08/04/18 03:25 08/04/18 03:25 08/04/18 03:25 08/04/18 03:25 Period Temp Pulse Resp BP Sys/Pope Pulse Ox Last 24 Hr 96.2 F-99.0 F 62-94 11-26 85-203/34-100 91-100 Intake and Output 08/03/18 08/04/18 08/04/18 21:59 05:59 13:59 Intake Total 1300 / 1300 200 / 200 Output Total 500 / 500 300 / 300 Balance 800 / 800 -100 / -100 Weight 79.379 kg Intake & Output: Intake & Output 08/03/18 08/04/18 08/04/18 21:59 05:59 13:59 Intake Total 1300 / 1300 200 / 200 Output Total 500 / 500 300 / 300 Balance 800 / 800 -100 / -100 Weight 79.379 kg Intake: IV 1300 / 1300 Lactated Ringers 1,000 ml @ 20 1200 / 1200 mls/hr IV .Q24H [facility] Rx#: [id number] Oral 200 / 200 Output: Urine Catheter Amount 175 / 175 300 / 300 Void Amount 325 / 325 Other: Urine Appearance Clear Clear Uretheral (Mahmood) Clear Urine Color Pale Straw Light Keri Light Keri Uretheral (Mahmood) Straw Exam: General: Alert, Awake, No acute Distress Eyes/N/T: EOMI, Head/Neck: neck supple, CV: 2/6 SM, No murmurs, normal s1/s2 Pulm: Clear b/l, no wheezing/rhonchi/rales Abd: soft, nontender, +BS x4 Ext: no clubbing/cyanosis/edema Neuro: Alert, no focal deficits, Skin: warm/dry Medical - PN: Obj Da - Labs CBC & Chem 7: 08/04/18 04:15 08/04/18 04:15 Labs: Abnormal Lab Results 08/04/18 08/04/18 08/03/18 04:15 04:15 13:55 WBC 14.9 H RDW 15.0 H Gran % 86.2 H Lymph % (Auto) 7.1 L Gran # 12.9 H Lymph # (Auto) 1.1 L [place] # (Auto) 1.0 H Anion Gap Glucose 119 H Calcium 8.3 L AST 54 H Alkaline Phosphatase 129 H Lactate Dehydrogenase 319 H Urine Occult Blood >=1.0 A Urine RBC > 182 H Amorphous Crystals Few A 08/03/18 08/03/18 13:26 13:26 WBC 19.2 H RDW 14.8 H Gran % 89.0 H Lymph % (Auto) 7.2 L Gran # 17.1 H Lymph # (Auto) 1.4 L [place] # (Auto) Anion Gap 17.0 H Glucose 149 H Calcium AST Alkaline Phosphatase 154 H Lactate Dehydrogenase Urine Occult Blood Urine RBC Amorphous Crystals Meds: Medications Alprazolam (Xanax) 0.5 mg PO TIDP PRN PRN Reason: Anxiety Aspirin (Ecotrin) 325 mg PO DAILY [facility] Bisacodyl (Dulcolax) 10 mg [place] Q2-3DAYS PRN PRN Reason: Constipation Cefazolin Sodium (Ancef) 2 gm IV Q8H [facility] Stop: 08/04/18 08:31 Last Admin: 08/04/18 00:25 Dose: 2 gm Citalopram Hydrobromide (Celexa) 20 mg PO DAILY [facility] Docusate Sodium (Colace) 100 mg PO BID [facility] Last Admin: 08/03/18 21:29 Dose: 100 mg Sodium Chloride (Sodium Chloride 0.9%) 1,000 mls @ 75 mls/hr IV .[id number] [facility] Stop: 08/04/18 17:42 Last Admin: 08/03/18 21:28 Dose: 75 mls/hr Lactobacillus Rhamnosus (Culturelle) 1 cap PO DAILY [facility] Magnesium Hydroxide (Milk Of Magnesia) 30 ml PO BIDP PRN PRN Reason: Constipation Magnesium Oxide (Magnesium Oxide) 400 mg PO DAILY [facility] Methocarbamol (Robaxin) 750 mg PO Q6HP PRN PRN Reason: Muscle Spasm Last Admin: 08/04/18 03:23 Dose: 750 mg Morphine Sulfate (Morphine) 1 - 3 mg IV Q3HP PRN PRN Reason: PAIN LEVEL > 6 Ondansetron HCl (Zofran Odt) 4 mg SL Q6HP PRN PRN Reason: Nausea And Vomiting Oxycodone/Acetaminophen (Percocet 5-325 Mg) 0 tab PO Q4HP PRN PRN Reason: PAIN LEVEL 3-6 Last Admin: 08/04/18 03:23 Dose: 1 tab Polyethylene Glycol (Miralax) 17 gm PO DAILYP PRN PRN Reason: Constipation Potassium Chloride (Kdur) 10 meq PO QAMCC [facility] Senna (Senokot) 2 tab PO HS [facility] Last Admin: 08/03/18 21:28 Dose: 2 tab Sodium Biphosphate/Sodium Phosphate (Fleets Adult) 1 dose [place] Q3-4DAYS PRN PRN Reason: Constipation Sodium Chloride (Saline Flush) 10 ml IV Q8 [facility] Last Admin: 08/04/18 05:20 Dose: Not Given Throat Lozenges (Cepacol) 1 lozenge PO PRN PRN PRN Reason: Sore Throat Medical - PN: A/P - Time Spent With Patient Total time spent is greater than 50% in coordination of care (as documented) at patient's floor/unit and/or counseling patient: - Narrative A/P Narrative: A: *Left hip fracture, GLF: s/p ORIF (08/03) *History of depression/anxiety *Leukocytosis: Likely reactive, afebrile, no recent illness. CXR/UA unremarkable -resolving * P: -Dr. Bird for ortho -pain control -cont home meds -pt/ot, -CM for placement -ppx: SCD, ASA per ortho Medical - PN: Qual - VTE Deep Vein Thrombosis/Pulmonary Embolism Present on Admission: No
--- NOTE | 2018-08-04 07:01 | Emergency Department Note ---
ED Note Addendum Note Addendum: Discussed this case with the mid-level provider and agree with the assessment and plan.
--- NOTE | 2018-08-04 07:29 | Operative Note ---
DATE OF OPERATION: 08/03/2018 PREOPERATIVE DIAGNOSIS: Transcervical femoral neck fracture, left hip. POSTOPERATIVE DIAGNOSIS: Transcervical femoral neck fracture, left hip. PROCEDURE: Left hip hemiarthroplasty. SURGEON: Vish Bird MD [employer] PROFESSIONAL SURGEON: Sundeep Aikne PA-C ANESTHESIA: Spinal with LMA assist. ESTIMATED BLOOD LOSS: 100 mL COMPLICATIONS: None noted. SPECIMENS REMOVED: None. DRAINS: Medium Hemovac x 1. IMPLANTS: DePuy Actis hip prosthesis femoral stem size 4 standard collar, DePuy modular [place] fractured head hip ball 46 mm diameter, DePuy modular [place] tapered spacer +0. INDICATIONS: The patient fell and was unable to ambulate. Radiographs have confirmed a displaced femoral neck fracture. The patient was admitted to the hospital and underwent medical clearance. After a long discussion about treatment options, the patient elected to proceed with a hip hemiarthroplasty. The risks and benefits were discussed with the patient in detail including, but not limited to, the risks of anesthesia, problems with the heart or lungs related to anesthesia, infection, compromise or injury to the nerves and blood vessels, deep venous thrombosis, pulmonary embolism, pneumonia, continued pain after surgery, worsening pain or symptoms after surgery, swelling, loss of motion, instability, leg length discrepancy, and need for repeat surgery. DESCRIPTION OF PROCEDURE: The patient was seen in pre-anesthesia waiting room where all questions were answered and the correct side and site were identified and marked. The patient was then brought to the operating room and administered the anesthetic and given preoperative antibiotics. A timeout was then called. The patient was placed in the lateral decubitus position with all prominences well-padded using the [place] frame and the extremity was prepped and draped in the usual sterile fashion. A standard posterior approach was made. We dissected through the skin and subcutaneous tissue to the deep fascia. The deep fascia was split in line with the incision and a Charnley retractor was placed. We exposed, tagged, and incised the short external rotators and piriformis tendon and retracted them posteriorly to help protect the sciatic nerve which was palpated throughout the case. We then performed a T-capsulotomy and tagged the capsule edges. The hip was then dislocated and a femoral neck osteotomy was performed to the presurgical templated level, off the lesser trochanter. The head was removed and sized. The acetabulum was inspected and did not have a significant degree of osteoarthritis. All bone and fracture debris was removed. Our attention was now turned to the femur. We placed retractors for visualization, internally rotated the femur, and established intramedullary access. We incrementally broached our stem to a stable platform medial, lateral, and rotationally with the appropriate version. We then performed a calcar reaming off the broach. Trials were then placed and optimized for leg length, soft tissue tension, and stability. Best stability, length, and offset characteristics were obtained with these sizes. We removed all trials and impacted the femoral stem to its broached location and placed the head. Final reduction was performed. Again, good stability, leg length, and offset characteristics were noted. We irrigated with three liters of antibiotic saline. We closed the capsule with #2 FiberWire. We closed the fascia with #2 Stratafix and #0 Vicryl. We closed the subcutaneous tissue and skin in layers out to frank in the skin. A sterile pressure dressing and abduction wedge was applied. All needle and sponge counts were correct. The patient was transferred to the recovery room in stable condition. Luan Job ID: [id number] Doc ID: [id number] Geovanna Bird MD
--- NOTE | 2018-08-04 07:49 | Orthopedic Progress Note ---
Subjective Patient information: Note initiated : 08/04/18 at 7:48 am Service Date, if different from initiated Date: [] Patient: Tameka Mccain 77 y/o F admitted on 08/03/18 for fall, left hip pain. Chief Complaint: [] Interval history: doing well. up to chair Objective Vital signs: Vital Signs Temp Pulse Pulse Resp BP BP Pulse Ox 08/04/18 07:14 97.7 F 18 121/64 94 08/04/18 03:25 98.9 F 94 H 16 114/67 94 08/03/18 23:54 87 102/57 95 08/03/18 23:24 89 107/61 94 08/03/18 22:54 99.0 F 87 12 102/61 95 08/03/18 22:17 90 104/63 94 08/03/18 21:17 86 118/63 94 08/03/18 20:47 88 139/65 97 08/03/18 20:17 82 155/69 95 08/03/18 20:04 88 128/98 97 08/03/18 19:49 83 103/87 97 08/03/18 19:33 88 98 08/03/18 19:32 96 08/03/18 19:18 96.5 F L 87 14 143/79 98 08/03/18 19:06 98.1 F 89 13 174/77 94 08/03/18 18:51 97.9 F 71 14 176/77 95 08/03/18 18:36 98.0 F 75 12 156/82 97 08/03/18 18:21 96.9 F L 86 12 137/100 96 08/03/18 18:06 96.7 F L 74 12 116/34 98 08/03/18 18:01 73 14 203/89 96 08/03/18 17:56 62 13 85/39 95 08/03/18 17:51 97.3 F 62 11 L 122/40 96 08/03/18 15:26 96.2 F L 70 26 H 147/57 99 08/03/18 15:10 96.2 F L 67 26 H 163/72 99 08/03/18 14:55 70 98 08/03/18 14:32 66 147/57 96 08/03/18 14:02 73 146/66 91 08/03/18 13:52 70 141/67 95 12/16/18 13:31 63 97 08/03/18 13:02 66 152/63 99 08/03/18 12:51 75 133/66 100 08/03/18 12:05 68 133/63 96 08/03/18 11:58 72 18 133/63 96 Intake and Output 08/03/18 08/04/18 08/04/18 21:59 05:59 13:59 Intake Total 1300 / 1300 200 / 200 800 / 800 Output Total 500 / 500 300 / 300 Balance 800 / 800 -100 / -100 800 / 800 Intake: IV 1300 / 1300 Lactated Ringers 1,000 ml @ 20 1200 / 1200 mls/hr IV .Q24H [facility] Rx#: [id number] Oral 200 / 200 800 / 800 Output: Urine Catheter Amount 175 / 175 300 / 300 Void Amount 325 / 325 Other: Urine Appearance Clear Clear Uretheral (Mahmood) Clear Urine Color Pale Straw Light Keri Light Keri Uretheral (Mahmood) Straw Weight 175 lb Intake & Output: Intake & Output 08/03/18 08/04/18 08/04/18 21:59 05:59 13:59 Intake Total 1300 / 1300 200 / 200 800 / 800 Output Total 500 / 500 300 / 300 Balance 800 / 800 -100 / -100 800 / 800 Weight 175 lb Intake: IV 1300 / 1300 Lactated Ringers 1,000 ml @ 20 1200 / 1200 mls/hr IV .Q24H [facility] Rx#: [id number] Oral 200 / 200 800 / 800 Output: Urine Catheter Amount 175 / 175 300 / 300 Void Amount 325 / 325 Other: Urine Appearance Clear Clear Uretheral (Mahmood) Clear Urine Color Pale Straw Light Keri Light Keri Uretheral (Mahmood) Straw Incision: Yes healing Incision clean and dry: Yes Dressing: Yes clean, Yes dry, Yes intact Weight bearing status: full Neurological exam IM: Yes abnormal gait, Yes alert, Yes oriented X3, Yes motor sensory intact, Yes neurovascular intact Extremities exam IM: No calf tenderness, Yes Foot pink and warm, Yes neurovascular intact - Labs CBC & BMP: 08/04/18 04:15 08/04/18 04:15 Labs: Orthopedic Labs 08/03/18 13:26 PT 12.7 INR 1.0 08/04/18 08/03/18 04:15 13:26 Hgb 12.7 14.9 Hct 37.9 45.0 Assessment and Plan (1) Hip fracture, left pod 1 s/p left hip hemiarthroplasty wbat posterior hip precautions pain control dvt prophylaxis d/c planning - likely rehab saturday Status: Acute
--- NOTE | 2018-08-04 07:51 | Discharge Summary ---
Ortho Discharge - [facility] - Patient Instructions Diet: Regular Diet Activity: ambulate with assistive device, weight bearing as tolerated Total Hip Protocol: Follow activity instructions as provided by Physical Therapy. Dressing Care: May shower in 2 days, Aquacel Ag - leave on for 5 days - Problem Maintenance (1) Hip fracture, left Status: Acute - Follow Up Plan Follow Up Appointments: Carlos Pandey ARNP [Primary Care Provider] - Vish Bird MD [Physician] - Disposition: [facility] SN[facility] Prognosis: Fair Rehab Potential: Good I certify that the patient requires SNF services: Yes Overall status at discharge: patient is progressing back to baseline
[2018-08-04] MEDS: POTASSIUM CHLORIDE 10 MEQ TABLET PO SCH (07:56)
[2018-08-04] MEDS ORDERED: POTASSIUM CHLORIDE 10 MEQ TABLET PO SCH (08:00)
[2018-08-04] MEDS ORDERED: MAGNESIUM OXIDE 400 MG TABLET PO SCH (09:00)
[2018-08-04] MEDS ORDERED: CITALOPRAM 20 MG TABLET PO SCH (09:00)
[2018-08-04] MEDS ORDERED: LACTOBACILLUS ACIDOPHILUS PO SCH (09:00)
[2018-08-04] MEDS: DOCUSATE SODIUM 100 MG CAPSULE PO SCH ×2 (09:29→20:40)
[2018-08-04] MEDS: CITALOPRAM 20 MG TABLET PO SCH (09:30)
[2018-08-04] MEDS: ASPIRIN 325 MG ENTERIC COATED TABLET PO SCH (09:30)
[2018-08-04] MEDS: LACTOBACILLUS 1 CAPSULE PO SCH (09:30)
[2018-08-04] MEDS: MAGNESIUM OXIDE 400 MG TABLET PO SCH (09:30)
[2018-08-04] MEDS: 0.9 % SODIUM CHLORIDE 1,000 ML IV SCH (10:18)
[2018-08-04] MEDS ORDERED: diphenhydrAMINE 25 MG CAPSULE PO PRN (10:50)
[2018-08-04] MEDS ORDERED: diphenhydrAMINE 50 MG/ML VIAL IV PRN (10:50)
[2018-08-04] MEDS: ACETAMINOPHEN 500 MG TABLET PO PRN ×2 (17:39→23:42)
[2018-08-04] MEDS: SENNOSIDES 1 TABLET PO SCH (20:40)
[2018-08-04] MEDS: ALPRAZolam 0.5 MG TABLET PO PRN (23:42)
[2018-08-05] MEDS: ACETAMINOPHEN 500 MG TABLET PO PRN ×2 (04:36→10:31)
[2018-08-05] MEDS: 0.9 % SODIUM CHLORIDE 10 ML SYRINGE IV SCH ×3 (04:37→20:23)
--- NOTE | 2018-08-05 06:51 | Internal Med Progress Note ---
Medical - PN: Subj Patient information: Note initiated : 08/05/18 at 6:50 am Service Date, if different from initiated Date: [] Patient: Tameka Mccain a 77 y/o F admitted on 08/03/18 for fall, left hip pain. Chief Complaint: [] Interval history: Ms. Mccain is a 77 year old F Who recently had cataract surgery a week prior with some residual vision deficit. She was out side and she was stepping up onto her porch. While stepping up she tripped over a step and fell landing on her left side. She had immediate pain to the left side. She was unable to get up and walk. She crawled across the portion of 4 steps into the house. She did not hit her head. There is no chest pain shortness of breath. No syncope. No numbness or tingling. No recent illness. She is seen in the ER. Found to have a left hip fracture. Dr. Bird was contacted. 08/04 Feeling better this morning. Did get some sleep. Leg pain better controlled. 08/05 Continues to feel better. Slept well. No new complaints. No overnight events. Leg pain controlled. Review of Systems: chronic abdominal pain. denies headache/fever/chills/nausea/vomiting/chest pain/ cough/dyspnea/diarrhea. Otherwise see above.1` - Constitutional Vitals: Vital Signs Temp Pulse Resp BP Pulse Ox 98.7 F 77 18 164/80 94 08/05/18 03:39 08/05/18 03:39 08/05/18 03:39 08/05/18 03:39 08/05/18 03:39 Period Temp Pulse Resp BP Sys/Pope Pulse Ox Last 24 Hr 97.7 F-100.3 F 77-82 18-20 121-164/64-80 92-94 Intake and Output 08/04/18 08/05/18 08/05/18 21:59 05:59 13:59 Intake Total 1160 / 1160 1650 / 1650 Output Total 300 / 300 750 / 750 Balance 860 / 860 900 / 900 Weight 80.739 kg Intake & Output: Intake & Output 08/04/18 08/05/18 08/05/18 21:59 05:59 13:59 Intake Total 1160 / 1160 1650 / 1650 Output Total 300 / 300 750 / 750 Balance 860 / 860 900 / 900 Weight 80.739 kg Intake: IV 1000 / 1000 Oral 1160 / 1160 650 / 650 Output: Void Amount 300 / 300 750 / 750 Other: Meal Dinner Percent of Meal Consumed 0% Urine Appearance Clear Clear Urine Color Straw Dark Yellow Urine Odor Normal Strong # Voids 1 Exam: General: Alert, Awake, No acute Distress Eyes/N/T: EOMI, Head/Neck: neck supple, CV: 2/6 SM, No murmurs, normal s1/s2 Pulm: Clear b/l, no wheezing/rhonchi/rales Abd: soft, nontender, +BS x4 Ext: no clubbing/cyanosis/edema Neuro: Alert, no focal deficits, Skin: warm/dry Medical - PN: Obj Da - Labs CBC & Chem 7: 08/05/18 04:15 08/04/18 04:15 Labs: Abnormal Lab Results 08/04/18 08/04/18 08/03/18 04:15 04:15 13:55 WBC 14.9 H RDW 15.0 H Gran % 86.2 H Lymph % (Auto) 7.1 L Gran # 12.9 H Lymph # (Auto) 1.1 L [place] # (Auto) 1.0 H Anion Gap Glucose 119 H Calcium 8.3 L AST 54 H Alkaline Phosphatase 129 H Lactate Dehydrogenase 319 H Urine Occult Blood >=1.0 A Urine RBC > 182 H Amorphous Crystals Few A 08/03/18 08/03/18 13:26 13:26 WBC 19.2 H RDW 14.8 H Gran % 89.0 H Lymph % (Auto) 7.2 L Gran # 17.1 H Lymph # (Auto) 1.4 L [place] # (Auto) Anion Gap 17.0 H Glucose 149 H Calcium AST Alkaline Phosphatase 154 H Lactate Dehydrogenase Urine Occult Blood Urine RBC Amorphous Crystals Meds: Medications Acetaminophen (Tylenol) 500 mg PO Q4-6HP PRN PRN Reason: PAIN/FEVER > 101 Last Admin: 08/05/18 04:36 Dose: 500 mg Alprazolam (Xanax) 0.5 mg PO TIDP PRN PRN Reason: Anxiety Last Admin: 08/04/18 23:42 Dose: 0.5 mg Aspirin (Ecotrin) 325 mg PO DAILY [facility] Last Admin: 08/04/18 09:30 Dose: 325 mg Bisacodyl (Dulcolax) 10 mg [place] Q2-3DAYS PRN PRN Reason: Constipation Citalopram Hydrobromide (Celexa) 20 mg PO DAILY [facility] Last Admin: 08/04/18 09:30 Dose: 20 mg Diphenhydramine HCl (Benadryl) 25 mg IV Q6HP PRN PRN Reason: Itching Last Admin: 08/04/18 11:03 Dose: 25 mg Diphenhydramine HCl (Benadryl) 25 mg PO Q6HP PRN PRN Reason: Allergic Symptoms Docusate Sodium (Colace) 100 mg PO BID [facility] Last Admin: 08/04/18 20:40 Dose: 100 mg Lactobacillus Rhamnosus (Culturelle) 1 cap PO DAILY [facility] Last Admin: 08/04/18 09:30 Dose: 1 cap Magnesium Hydroxide (Milk Of Magnesia) 30 ml PO BIDP PRN PRN Reason: Constipation Magnesium Oxide (Magnesium Oxide) 400 mg PO DAILY [facility] Last Admin: 08/04/18 09:30 Dose: 400 mg Methocarbamol (Robaxin) 750 mg PO Q6HP PRN PRN Reason: Muscle Spasm Last Admin: 08/04/18 03:23 Dose: 750 mg Morphine Sulfate (Morphine) 1 - 3 mg IV Q3HP PRN PRN Reason: PAIN LEVEL > 6 Ondansetron HCl (Zofran Odt) 4 mg SL Q6HP PRN PRN Reason: Nausea And Vomiting Oxycodone/Acetaminophen (Percocet 5-325 Mg) 0 tab PO Q4HP PRN PRN Reason: PAIN LEVEL 3-6 Last Admin: 08/04/18 10:17 Dose: 1 tab Polyethylene Glycol (Miralax) 17 gm PO DAILYP PRN PRN Reason: Constipation Potassium Chloride (Kdur) 10 meq PO QAC [facility] Last Admin: 08/04/18 07:56 Dose: 10 meq Senna (Senokot) 2 tab PO [facility] Last Admin: 08/04/18 20:40 Dose: 2 tab Sodium Biphosphate/Sodium Phosphate (Fleets Adult) 1 dose [place] Q3-4DAYS PRN PRN Reason: Constipation Sodium Chloride (Saline Flush) 10 ml IV Q8 [facility] Last Admin: 08/05/18 04:37 Dose: 10 ml Throat Lozenges (Cepacol) 1 lozenge PO PRN PRN PRN Reason: Sore Throat Medical - PN: A/P - Time Spent With Patient Total time spent is greater than 50% in coordination of care (as documented) at patient's floor/unit and/or counseling patient: - Narrative A/P Narrative: A: *Left hip fracture, GLF: s/p ORIF (08/03) *History of depression/anxiety *Leukocytosis: Likely reactive, afebrile, no recent illness. CXR/UA unremarkable -resolving * P: -Dr. Bird for ortho -pain control -cont home meds -pt/ot, -CM for placement -ppx: SCD, ASA per ortho d/c planning for AM Medical - PN: Qual - VTE Deep Vein Thrombosis/Pulmonary Embolism Present on Admission: No
[2018-08-05 06:52] LABS: Basophils # (Auto) 0.1 K/mcL (0.0-0.3); Basophils % (Auto) 0.6 % (0.0-2.0); Eosinophils # (Auto) 0.1 K/mcL (0.0-0.7); Granulocytes % (Auto) 83.5 % (38.0-78.0); Lymphocytes # (Auto) 1.1 K/mcL (1.5-4.8); Mean Cell Volume 91.7 fL (80.0-100.0); Mean Corpuscular HGB Conc 33.6 g/dL (31.0-36.0); Mean Corpuscular Hemoglobin 30.8 pg (26.0-34.0); Monocytes # (Auto) 0.7 K/mcL (0.1-0.9); Monocytes % (Auto) 5.9 % (1.0-12.0); Platelet Count 264 K/mcL (140-440); RBC 3.86 M/mcL (4.00-5.20); Red Cell Distribution Width 14.7 % (11.5-14.5)
--- NOTE | 2018-08-05 07:16 | Orthopedic Progress Note ---
Subjective Patient information: Note initiated : 08/05/18 at 7:15 am Service Date, if different from initiated Date: [] Patient: Tameka Mccain 77 y/o F admitted on 08/03/18 for fall, left hip pain. Chief Complaint: [] Interval history: doing well. pain under control Objective Vital signs: Vital Signs Temp Pulse Resp BP Pulse Ox 08/05/18 07:07 98.2 F 75 16 143/81 92 08/05/18 03:39 98.7 F 77 18 164/80 94 08/04/18 23:07 99.6 F H 81 20 159/74 94 08/04/18 21:15 100.3 F H 08/04/18 19:01 100.0 F H 81 20 151/66 93 08/04/18 15:41 97.9 F 18 135/71 93 08/04/18 11:34 98.6 F 82 20 131/64 92 08/04/18 09:36 93 Intake and Output 08/04/18 08/05/18 08/05/18 21:59 05:59 13:59 Intake Total 1160 / 1160 1650 / 1650 Output Total 300 / 300 750 / 750 Balance 860 / 860 900 / 900 Intake: IV 1000 / 1000 Oral 1160 / 1160 650 / 650 Output: Void Amount 300 / 300 750 / 750 Other: Meal Dinner Percent of Meal Consumed 0% Urine Appearance Clear Clear Urine Color Straw Dark Yellow Urine Odor Normal Strong # Voids 1 Weight 178 lb Intake & Output: Intake & Output 08/04/18 08/05/18 08/05/18 21:59 05:59 13:59 Intake Total 1160 / 1160 1650 / 1650 Output Total 300 / 300 750 / 750 Balance 860 / 860 900 / 900 Weight 178 lb Intake: IV 1000 / 1000 Oral 1160 / 1160 650 / 650 Output: Void Amount 300 / 300 750 / 750 Other: Meal Dinner Percent of Meal Consumed 0% Urine Appearance Clear Clear Urine Color Straw Dark Yellow Urine Odor Normal Strong # Voids 1 Incision: Yes healing Incision clean and dry: Yes Dressing: Yes clean, Yes dry, Yes intact Weight bearing status: full Neurological exam IM: Yes abnormal gait, Yes alert, Yes oriented X3, Yes motor sensory intact, Yes neurovascular intact Extremities exam IM: No calf tenderness, Yes Foot pink and warm, Yes neurovascular intact - Labs CBC & BMP: 08/05/18 04:15 08/04/18 04:15 Labs: Orthopedic Labs 08/03/18 13:26 PT 12.7 INR 1.0 08/05/18 08/04/18 08/03/18 04:15 04:15 13:26 Hgb 11.9 L 12.7 14.9 Hct 35.4 L 37.9 45.0 Assessment and Plan (1) Hip fracture, left pod 2 s/p left hip hemiarthroplasty wbat posterior hip precautions pain control dvt prophylaxis d/c planning - likely rehab saturday Status: Acute
[2018-08-05] MEDS ORDERED: POLYETHYLENE GLYCOL 3350 17 GM PACKET PO ONE (07:59)
[2018-08-05] MEDS: ASPIRIN 325 MG ENTERIC COATED TABLET PO SCH (08:13)
[2018-08-05] MEDS: POTASSIUM CHLORIDE 10 MEQ TABLET PO SCH (08:13)
[2018-08-05] MEDS: MAGNESIUM OXIDE 400 MG TABLET PO SCH (08:13)
[2018-08-05] MEDS: DOCUSATE SODIUM 100 MG CAPSULE PO SCH ×2 (08:13→20:23)
[2018-08-05] MEDS: CITALOPRAM 20 MG TABLET PO SCH (08:13)
--- NOTE | 2018-08-05 08:27 | Discharge Summary ---
Medical - DS: Prov Patient information: Note initiated : 08/05/18 at 8:25 am Service Date, if different from initiated Date: [] Patient: Tameka Mccain 77 y/o F admitted on 08/03/18 for fall, left hip pain. Chief Complaint: [] Date of admission: 08/03/18 15:00 Discharge date: 08/06/18 Primary care physician: Carlos Pandey Consults: 08/03/18 Consult to Physician [CONS] Stat Comment: Consulting Provider: Vish Bird Reason For Exam: Physician to Consult Consult to Physician [CONS] Stat Comment: Consulting Provider: Sesar Winkler Reason For Exam: Physician to Consult Medical - DS: Meds - Discharge Medications Prescriptions: ALPRAZolam [Xanax] 0.5 mg PO TIDP PRN #20 tab PRN Reason: Anxiety Aspirin [Ecotrin] 325 mg PO BID #60 tab.ec oxyCODONE/APAP [Percocet 5-325 mg] 1 tab PO Q4H PRN #60 tab PRN Reason: Pain Active and Home Medications: Home Medications alprazolam 0.5 mg tablet 0.5 mg PO HS tab 11/28/16 [History Confirmed 08/03/18 Last Taken 01/20/18] citalopram 20 mg tablet 20 mg PO DAILY tab 11/28/16 [History Confirmed Last Taken 01/20/18] Docusate Sodium [Colace] 200 mg PO DAILY 01/16/18 [History Confirmed 08/03/18 Last Taken 01/18/18] Acetaminophen [Tylenol Extra Strength] 1 - 2 tab PO Q4H PRN 01/21/18 [History Confirmed 08/03/18 Last Taken 08/02/18] Alive womans Vitamin 1 tab PO DAILY 01/24/18 [History Confirmed 08/03/18 Last Taken Unknown] Lactobacillus acidophilus 1 tab PO DAILY 05/05/18 [History Confirmed 08/03/18 Last Taken Unknown] alpha lipoic acid 300 mg capsule 300 mg PO QDAY 05/05/18 [History Confirmed Last Taken Unknown] calcium carbonate 500 mg calcium (1,250 mg) chewable tablet 2,000 mg PO QDAY tab 05/05/18 [History Confirmed 08/03/18 Last Taken 08/02/18] cholecalciferol (vitamin D3) 5,000 unit capsule 5,000 unit PO QDAY 05/05/18 [ History Confirmed 08/03/18 Last Taken Unknown] magnesium oxide 400 mg capsule 400 mg PO QDAY cap 05/05/18 [History Confirmed 08/03/18 Last Taken Unknown] omega-3 fatty [id number] 1 tab PO DAILY 05/05/18 [History Confirmed 08/03/18 Last Taken Unknown] Vitamin B-12 1,000 mcg PO DAILY 08/03/18 [History Confirmed 08/03/18 Last Taken Unknown] Aspirin [Ecotrin] 325 mg PO BID #60 tab.ec 08/04/18 [Rx Last Taken Unknown] oxyCODONE/APAP [Percocet 5-325 mg] 1 tab PO Q4H PRN #60 tab 08/04/18 [Rx Last Taken Unknown] Home Medications citalopram 20 mg tablet 20 mg PO DAILY tab 11/28/16 [History Confirmed Last Taken 01/20/18] Docusate Sodium [Colace] 200 mg PO DAILY 01/16/18 [History Confirmed 08/03/18 Last Taken 01/18/18] Acetaminophen [Tylenol Extra Strength] 1 - 2 tab PO Q4H PRN 01/21/18 [History Confirmed 08/03/18 Last Taken 08/02/18] Alive womans Vitamin 1 tab PO DAILY 01/24/18 [History Confirmed 08/03/18 Last Taken Unknown] Lactobacillus acidophilus 1 tab PO DAILY 05/05/18 [History Confirmed 08/03/18 Last Taken Unknown] alpha lipoic acid 300 mg capsule 300 mg PO QDAY 05/05/18 [History Confirmed Last Taken Unknown] calcium carbonate 500 mg calcium (1,250 mg) chewable tablet 2,000 mg PO QDAY tab 05/05/18 [History Confirmed 08/03/18 Last Taken 08/02/18] cholecalciferol (vitamin D3) 5,000 unit capsule 5,000 unit PO QDAY 05/05/18 [ History Confirmed 08/03/18 Last Taken Unknown] magnesium oxide 400 mg capsule 400 mg PO QDAY cap 05/05/18 [History Confirmed 08/03/18 Last Taken Unknown] omega-3 fatty [id number] 1 tab PO DAILY 05/05/18 [History Confirmed 08/03/18 Last Taken Unknown] Vitamin B-12 1,000 mcg PO DAILY 08/03/18 [History Confirmed 08/03/18 Last Taken Unknown] Aspirin [Ecotrin] 325 mg PO BID #60 tab.ec 08/04/18 [Rx Last Taken Unknown] oxyCODONE/APAP [Percocet 5-325 mg] 1 tab PO Q4H PRN #60 tab 08/04/18 [Rx Last Taken Unknown] ALPRAZolam [Xanax] 0.5 mg PO TIDP PRN #20 tab 08/05/18 [Rx Last Taken Unknown] Medical - DS: Hosp Hospital course: Mr. Mccain is a 77 year old F Ms. Mccain is a 77 year old F Who recently had cataract surgery a week prior with some residual vision deficit. She was out side and she was stepping up onto her porch. While stepping up she tripped over a step and fell landing on her left side. She had immediate pain to the left side. She was unable to get up and walk. She crawled across the portion of 4 steps into the house. She did not hit her head. There is no chest pain shortness of breath. No syncope. No numbness or tingling. No recent illness. She is seen in the ER. Found to have a left hip fracture. Dr. Bird was contacted. 08/04 Feeling better this morning. Did get some sleep. Leg pain better controlled. 08/05 Continues to feel better. Slept well. No new complaints. No overnight events. Leg pain controlled. 08/06 Doing well and stable for discharge Discharge diagnosis: Left hip fracture Secondary discharge diagnosis: Depression anxiety - Time Spent with Patient Total time spent providing and/or coordinating discharge services: Greater than 30 minutes Medical - DS: Exam - Constitutional Vitals: Vital Signs Temp Pulse Resp BP Pulse Ox 08/05/18 07:07 98.2 F 75 16 143/81 92 08/05/18 03:39 98.7 F 77 18 164/80 94 08/04/18 23:07 99.6 F H 81 20 159/74 94 08/04/18 21:15 100.3 F H 08/04/18 19:01 100.0 F H 81 20 151/66 93 08/04/18 15:41 97.9 F 18 135/71 93 08/04/18 11:34 98.6 F 82 20 131/64 92 08/04/18 09:36 93 Intake and Output 08/04/18 08/05/18 08/05/18 21:59 05:59 13:59 Intake Total 1160 / 1160 1650 / 1650 Output Total 300 / 300 750 / 750 450 / 450 Balance 860 / 860 900 / 900 -450 / -450 Intake: IV 1000 / 1000 Oral 1160 / 1160 650 / 650 Output: Void Amount 300 / 300 750 / 750 450 / 450 Other: Meal Dinner Percent of Meal Consumed 0% Urine Appearance Clear Clear Urine Color Straw Dark Yellow Urine Odor Normal Strong # Voids 1 1 Weight 80.739 kg Medical - DS: Data Labs on day of discharge: Labs from last 24 hours 08/05/18 04:15 WBC 12.4 H RBC 3.86 L Hgb 11.9 L Hct 35.4 L MCV 91.7 MCH 30.8 MCHC 33.6 RDW 14.7 H Plt Count 264 MPV 9.8 Gran % 83.5 H Lymph % (Auto) 9.0 L Alcorn % (Auto) 5.9 Eos % (Auto) 1.0 Baso % (Auto) 0.6 Gran # 10.4 H Lymph # (Auto) 1.1 L Alcorn # (Auto) 0.7 Eos # (Auto) 0.1 Baso # (Auto) 0.1 Medical - DS: A/P - Patient/Caregiver Discharge Instructions Activity: as per physical therapy Diet: Regular Diet Additional Instructions: Discharge Instructions: Do the exercises at home that physical therapy gave you throughout the day. Weight bearing as tolerated. Wear comfortable clothing for physical therapy. You have Dermabond (a dressing with a mesh-like appearance), DO NOT remove mesh. Cover site daily with gauze dressing. You may start showering on post op day #2. The Dermabond dressing can get wet, do not scrub dressing. Pat dry, then place new dressing (above). To avoid constipation while taking any narcotic pain medication, take an over the counter stool softener/laxative. Use ice packs as directed, on for 20 minutes at a time throughout the day. This and elevation will help with pain and swelling. Call your physician for fevers above 100.5 or pain not controlled by medication. Your prescriptions are with your discharge information. Some medications were electronically transmitted to your pharmacy of choice. Take Aspirin twice daily, for 30 days, as prescribed to prevent blood clots ( see medication list). Prescriptions: ALPRAZolam [Xanax] 0.5 mg PO TIDP PRN #20 tab PRN Reason: Anxiety Aspirin [Ecotrin] 325 mg PO BID #60 tab.ec oxyCODONE/APAP [Percocet 5-325 mg] 1 tab PO Q4H PRN #60 tab PRN Reason: Pain Other Amb Orders: OT Discharge Order Location: None Selected Physical Therapy at Discharge - [facility] Location: None Selected [facility] Discharge Order Location: None Selected [facility] Location: None Selected - Follow up Plan Follow up with: Carlos Pandey ARNP [Primary Care Provider] - (Please call/schedule hospital follow up.) Vish Bird MD [Physician] - (Call/schedule surgical follow up to be seen 10-14 days after surgery.) Disposition: Xfer SNF Prognosis: Fair Rehab Potential: Fair I certify that the patient requires SNF services: Yes Overall status at discharge: patient is progressing back to baseline Medical - DS: Qual - VTE Deep Vein Thrombosis/Pulmonary Embolism Present on Admission: No
[2018-08-05] MEDS: LACTOBACILLUS 1 CAPSULE PO SCH (08:33)
[2018-08-05] MEDS: ALPRAZolam 0.5 MG TABLET PO PRN ×2 (10:31→23:20)
[2018-08-05] MEDS: traMADol 50 MG TABLET PO PRN ×2 (14:41→20:23)
[2018-08-05] MEDS: SENNOSIDES 1 TABLET PO SCH (20:23)
[2018-08-06] MEDS: traMADol 50 MG TABLET PO PRN ×2 (03:06→09:03)
[2018-08-06] MEDS: 0.9 % SODIUM CHLORIDE 10 ML SYRINGE IV SCH (04:14)
--- NOTE | 2018-08-06 06:49 | Discharge Summary ---
Providers - Providers Patient information: Note initiated : 08/06/18 at 6:47 am Service Date, if different from initiated Date: [] Patient: Tameka Mccain 77 y/o F admitted on 08/03/18 for fall, left hip pain. Chief Complaint: [POD #3 s/p left yessica hip arthroplasty Patient doing great, reports minimal pain. Ambulating and urinating independently. Denies CP, SOB, numbness, tingling, calf pain. No questions or concerns.] Discharge date: 08/06/18 Hospitalization Hospital course: Patient sustained left hip fracture on Saturday08/03/18. She came to ER and was evaluated by Dr. Bird who recommended and performed a left yessica hip arthroplasty which went on without complication. The patient was admitted to the med/surg floor for pain control and post operative care. She has stayed 3 midnights without event and will discharge to [facility] in [place] for rehab. She will follow up in clinic in 10-14 days for her surgery post op. Discharge diagnosis: left hip fracture Exam - Exam Incision healing: Yes Incision draining: No Incision red: No Incision swollen: No Incision inflamed: No Clean and dry: Yes Weight bearing status: as tolerated Range of motion: full foot, knee and ankle Ortho Discharge - [facility] - Patient Instructions Diet: Regular Diet Activity: ambulate with assistive device, weight bearing as tolerated Total Hip Protocol: Follow activity instructions as provided by Physical Therapy. - Follow Up Plan Follow Up Appointments: Carlos Pandey ARNP [Primary Care Provider] - Vish Bird MD [Physician] - Disposition: [facility] Prognosis: Fair Rehab Potential: Fair I certify that the patient requires SNF services: Yes Overall status at discharge: patient is progressing back to baseline - Orders For Discharge Prescriptions: ALPRAZolam [Xanax] 0.5 mg PO TIDP PRN #20 tab PRN Reason: Anxiety Aspirin [Ecotrin] 325 mg PO BID #60 tab.ec oxyCODONE/APAP [Percocet 5-325 mg] 1 tab PO Q4H PRN #60 tab PRN Reason: Pain Additional Discharge Orders: OT Discharge Order Location: None Selected Physical Therapy at Discharge - [facility] Location: None Selected [facility] Discharge Order Location: None Selected [facility] Location: None Selected Pending Studies Resuscitation Status Full Code Diet Regular Diet Start SatAug 04 1351 Acetaminophen (Tylenol) 500 mg PO Q4-6HP PRN PRN Reason: PAIN/FEVER > 101 Last Admin: 08/05/18 10:31 Dose: 500 mg Admin: 08/05/18 04:36 Dose: 500 mg Admin: 08/04/18 23:42 Dose: 500 mg Admin: 08/04/18 17:39 Dose: 500 mg Alprazolam (Xanax) 0.5 mg PO TIDP PRN PRN Reason: Anxiety Last Admin: 08/05/18 23:20 Dose: 0.5 mg Admin: 08/05/18 10:31 Dose: 0.5 mg Admin: 08/04/18 23:42 Dose: 0.5 mg Aspirin (Ecotrin) 325 mg PO DAILY [facility] Last Admin: 08/05/18 08:13 Dose: 325 mg Admin: 08/04/18 09:30 Dose: 325 mg Citalopram Hydrobromide (Celexa) 20 mg PO DAILY [facility] Last Admin: 08/05/18 08:13 Dose: 20 mg Admin: 08/04/18 09:30 Dose: 20 mg Diphenhydramine HCl (Benadryl) 25 mg IV Q6HP PRN PRN Reason: Itching Last Admin: 08/04/18 11:03 Dose: 25 mg Docusate Sodium (Colace) 100 mg PO BID [facility] Last Admin: 08/05/18 20:23 Dose: 100 mg Admin: 08/05/18 08:13 Dose: 100 mg Admin: 08/04/18 20:40 Dose: 100 mg Admin: 08/04/18 09:29 Dose: 100 mg Admin: 08/03/18 21:29 Dose: 100 mg Lactobacillus Rhamnosus (Culturelle) 1 cap PO DAILY [facility] Last Admin: 08/05/18 08:33 Dose: 1 cap Admin: 08/04/18 09:30 Dose: 1 cap Magnesium Oxide (Magnesium Oxide) 400 mg PO DAILY [facility] Last Admin: 08/05/18 08:13 Dose: 400 mg Admin: 08/04/18 09:30 Dose: 400 mg Methocarbamol (Robaxin) 750 mg PO Q6HP PRN PRN Reason: Muscle Spasm Last Admin: 08/04/18 03:23 Dose: 750 mg Oxycodone/Acetaminophen (Percocet 5-325 Mg) 0 tab PO Q4HP PRN PRN Reason: PAIN LEVEL 3-6 Last Admin: 08/04/18 10:17 Dose: 1 tab Admin: 08/04/18 03:23 Dose: 1 tab Admin: 08/04/18 00:25 Dose: 1 tab Potassium Chloride (Kdur) 10 meq PO QAMCC [facility] Last Admin: 08/05/18 08:13 Dose: 10 meq Admin: 08/04/18 07:56 Dose: 10 meq Senna (Senokot) 2 tab PO HS [facility] Last Admin: 08/05/18 20:23 Dose: 2 tab Admin: 08/04/18 20:40 Dose: 2 tab Admin: 08/03/18 21:28 Dose: 2 tab Sodium Chloride (Saline Flush) 10 ml IV Q8 [facility] Last Admin: 08/06/18 04:14 Dose: Admin: 08/05/18 20:23 Dose: Admin: 08/05/18 14:42 Dose: Admin: 08/05/18 04:37 Dose: 10 ml Admin: 08/04/18 20:41 Dose: Not Given Admin: 08/04/18 15:45 Dose: Not Given Admin: 08/04/18 05:20 Dose: Not Given Admin: 08/03/18 21:30 Dose: Not Given Tramadol HCl (Ultram) 50 - 100 mg PO Q4-6HP PRN PRN Reason: Pain Last Admin: 08/06/18 03:06 Dose: 50 mg Admin: 08/05/18 20:23 Dose: 100 mg Admin: 08/05/18 14:41 Dose: 50 mg Shift Summary 08/06/18 04:16 Shift Summary by Paulina Harmon&Ox4. VSS. Up with FWW and SBA. Surgical dressing to left hip removed and replaced with Aquacel Ag dressing to cover frank. Administered Tramadol x2 this shift for abdominal and hip pain. Plan is for patient to discharge to [facility] today. Will update at bedside. Initialized on 08/06/18 04:16 - END OF NOTE
[2018-08-06] MEDS: MAGNESIUM OXIDE 400 MG TABLET PO SCH (09:01)
[2018-08-06] MEDS: POTASSIUM CHLORIDE 10 MEQ TABLET PO SCH (09:01)
[2018-08-06] MEDS: LACTOBACILLUS 1 CAPSULE PO SCH (09:02)
[2018-08-06] MEDS: CITALOPRAM 20 MG TABLET PO SCH (09:02)
[2018-08-06] MEDS: ASPIRIN 325 MG ENTERIC COATED TABLET PO SCH (09:03)
[2018-08-06] MEDS: DOCUSATE SODIUM 100 MG CAPSULE PO SCH (09:03)
== END 2018-08-06 10:00 | DRG 470 ==
LOC: ED 11:57 → MEDSUR 15:00
PROVIDERS: ADMIT Internal Medicine; ATTEND Internal Medicine
PROC: HEMIHIP (2018-08-03 16:24)
CPT/HCPCS: 62322; 73502; 97161; 97166; 99231; C1776; J0131; J0690; J1170; J1200; J1580; J2001; J2250; J2270; J2370; J2405; J2550; J2765; J3010; J7030; J7120